=== PATIENT | male | born 1935 | race Caucasian/White ===

== ENCOUNTER → 2018-10-09 10:31 | Outpatient (CLI) | payer OTHER, SELFPAY ==
[2018-10-09 12:03] LABS: Add Manual Diff / Slide Review NO; Basophils Percent Auto 0.7 % (0-2); Eosinophils Percent Auto 2.6 % (2-4); Hematocrit 41.9 % (41-53); Hemoglobin 14.2 g/dL (13.5-17.5); Lymphocytes Percent Auto 38.3 % (25-40); Mean Corpuscular HGB Conc 33.8 % (30-36); Mean Corpuscular Volume 85.9 fL (80-100); Monocytes Percent Auto 5.9 % (3-14); Neutrophils Absolute Auto 5000 /uL (3000-5900); Neutrophils Percent Auto 52.5 % (50-75); Platelet Count 207 X10^3/uL (150-400); Red Blood Cell Count 4.87 X10^6/uL (4.5-5.9); Red Cell Distribution Width 14.5 % (11.6-14.8); White Blood Cell Count 9.6 X10^3/uL (4.5-11.0)
[2018-10-09 12:19] LABS: Alanine Aminotransferase 20 IU/L (21-72); Albumin 4.3 g/dL (3.5-5.0); Albumin Globulin Ratio 1.7 (1.0-2.8); Alkaline Phosphatase 53 U/L (38-126); Aspartate Aminotransferase 26 IU/L (17-59); Bilirubin Total 0.9 mg/dL (0.2-1.3); Blood Urea Nitrogen 15 mg/dL (9-20); Calcium 9.5 mg/dL (8.4-10.2); Carbon Dioxide 26 mmol/L (22-32); Chloride 106 mmol/L (98-107); Cholesterol 161 mg/dL (140-199); Estimated Glomerular Filt Rate > 60.0 mL/min (>60); Globulin 2.5 g/dL (1.7-4.1); Glucose 92 mg/dL (80-110); HDL Cholesterol 51 mg/dL (40-60); HEMOLYSIS 23 (0-50); LDL Cholesterol Calculated 94 mg/dL (<100); Potassium 4.8 mmol/L (3.4-5.1); Sodium 143 mmol/L (137-145); Total Protein 6.8 g/dL (6.3-8.2); Triglycerides 81 mg/dL (35-150)
== END ==
PROVIDERS: PCP Student in an Organized Health Care Education/Training Program; Visit Provider Student in an Organized Health Care Education/Training Program
DX: E78.00 Pure hypercholesterolemia, unspecified (principal)
CPT/HCPCS: 36415; 80053; 80061; 85025

== ENCOUNTER → 2019-08-14 08:28 | Outpatient (CLI) | payer OTHER, SELFPAY ==
[2019-08-14 09:47] LABS: Alanine Aminotransferase 17 IU/L (21-72); Albumin Globulin Ratio 1.8 (1.0-2.8); Alkaline Phosphatase 52 U/L (38-126); Aspartate Aminotransferase 27 IU/L (17-59); BUN Creatinine Ratio 16.7 (6-22); Bilirubin Total 1.1 mg/dL (0.2-1.3); Blood Urea Nitrogen 20 mg/dL (9-20); Calcium 9.6 mg/dL (8.4-10.2); Carbon Dioxide 30 mmol/L (22-32); Chloride 103 mmol/L (98-107); Cholesterol 152 mg/dL (140-199); Estimated Glomerular Filt Rate 57.7 mL/min (>60); Globulin 2.2 g/dL (1.7-4.1); Glucose 94 mg/dL (80-110); HDL Cholesterol 45 mg/dL (40-60); HEMOLYSIS < 15 (0-50); LDL Cholesterol Calculated 92 mg/dL (<100); Potassium 5.1 mmol/L (3.4-5.1); Sodium 138 mmol/L (137-145); Total Protein 6.2 g/dL (6.3-8.2); Triglycerides 77 mg/dL (35-150)
== END ==
PROVIDERS: PCP Student in an Organized Health Care Education/Training Program; Visit Provider Student in an Organized Health Care Education/Training Program
DX: E78.5 Hyperlipidemia, unspecified (principal); N40.1 Benign prostatic hyperplasia with lower urinary tract symptoms
CPT/HCPCS: 36415; 80053; 80061

== ENCOUNTER → 2020-03-31 09:20 | Outpatient (CLI) | payer OTHER, SELFPAY ==
[2020-03-31 10:35] LABS: Alanine Aminotransferase 15 IU/L (<50); Albumin 4.1 g/dL (3.5-5.0); Albumin Globulin Ratio 1.8 (1.0-2.8); Alkaline Phosphatase 58 U/L (38-126); Aspartate Aminotransferase 33 IU/L (17-59); BUN Creatinine Ratio 23.1 (6-22); Bilirubin Total 0.7 mg/dL (0.2-1.3); Blood Urea Nitrogen 24 mg/dL (9-20); Calcium 9.6 mg/dL (8.4-10.2); Carbon Dioxide 29 mmol/L (22-32); Chloride 105 mmol/L (98-107); Cholesterol 155 mg/dL (140-199); Estimated Glomerular Filt Rate > 60.0 mL/min (>60); Globulin 2.3 g/dL (1.7-4.1); Glucose 103 mg/dL (80-110); HDL Cholesterol 38 mg/dL (40-60); HEMOLYSIS < 15 (0-50); LDL Cholesterol Calculated 102 mg/dL (<100); Potassium 5.3 mmol/L (3.4-5.1); Sodium 140 mmol/L (137-145); Total Protein 6.4 g/dL (6.3-8.2); Triglycerides 77 mg/dL (35-150)
== END ==
PROVIDERS: PCP Student in an Organized Health Care Education/Training Program; Referring Provider Student in an Organized Health Care Education/Training Program; Visit Provider Student in an Organized Health Care Education/Training Program
DX: E78.5 Hyperlipidemia, unspecified (principal)
CPT/HCPCS: 36415; 80053; 80061

== ENCOUNTER → 2020-05-01 09:35 | Outpatient (CLI) | payer OTHER, SELFPAY ==
[2020-05-01 10:37] LABS: BUN Creatinine Ratio 23.6 (6-22); Blood Urea Nitrogen 26 mg/dL (9-20); Calcium 9.5 mg/dL (8.4-10.2); Carbon Dioxide 30 mmol/L (22-32); Chloride 105 mmol/L (98-107); Estimated Glomerular Filt Rate > 60.0 mL/min (>60); Glucose 92 mg/dL (80-110); HEMOLYSIS < 15 (0-50); Potassium 4.3 mmol/L (3.4-5.1); Sodium 138 mmol/L (137-145)
== END ==
PROVIDERS: PCP Student in an Organized Health Care Education/Training Program; Referring Provider Student in an Organized Health Care Education/Training Program; Visit Provider Student in an Organized Health Care Education/Training Program
DX: E87.5 Hyperkalemia (principal)
CPT/HCPCS: 36415; 80048

== ENCOUNTER → 2021-02-23 09:13 | Outpatient (CLI) | payer OTHER, SELFPAY ==
[2021-02-23 09:57] LABS: Bacteria Urine Few (2-10); Hyaline Casts Urine 1-5/LPF; RBC Urine 1-5/HPF (0-5/HPF); WBC Urine 1-5/HPF (0-5/HPF)
== END ==
PROVIDERS: PCP Student in an Organized Health Care Education/Training Program; Referring Provider Physician Assistant; Visit Provider Physician Assistant
DX: N40.1 Benign prostatic hyperplasia with lower urinary tract symptoms (principal)
CPT/HCPCS: 81015; 87086

== ENCOUNTER → 2021-04-08 12:19 | Outpatient (CLI) | payer OTHER, SELFPAY ==
[2021-04-08 14:00] LABS: Add Manual Diff / Slide Review YES; Hematocrit 34.1 % (41-53); Hemoglobin 11.2 g/dL (13.5-17.5); Mean Corpuscular HGB Conc 32.8 % (30-36); Mean Corpuscular Hemoglobin 28.9 PG (26-34); Platelet Count 147 X10^3/uL (150-400); Red Blood Cell Count 3.87 X10^6/uL (4.5-5.9); Red Cell Distribution Width 15.8 % (11.6-14.8); White Blood Cell Count 26.1 X10^3/uL (4.5-11.0)
[2021-04-08 14:23] LABS: Neutrophils Absolute Manual 3915 /uL (3000-5900); RBC Morphology Normal Morphology; Smudge Cells 2+; Total Cells Counted 100
[2021-04-08 15:06] LABS: Alanine Aminotransferase 14 IU/L (<50); Albumin 3.9 g/dL (3.5-5.0); Alkaline Phosphatase 67 U/L (38-126); Aspartate Aminotransferase 31 IU/L (17-59); BUN Creatinine Ratio 23.5 (6-22); Bilirubin Total 0.8 mg/dL (0.2-1.3); Blood Urea Nitrogen 28 mg/dL (9-20); Calcium 9.6 mg/dL (8.4-10.2); Carbon Dioxide 29 mmol/L (22-32); Chloride 106 mmol/L (98-107); Cholesterol 152 mg/dL (140-199); Glucose 89 mg/dL (80-110); HDL Cholesterol 43 mg/dL (40-60); HEMOLYSIS < 15 (0-50); LDL Cholesterol Calculated 94 mg/dL (<100); Potassium 4.6 mmol/L (3.4-5.1); Sodium 142 mmol/L (137-145); Total Protein 5.9 g/dL (6.3-8.2); Triglycerides 75 mg/dL (35-150)
== END ==
PROVIDERS: PCP Student in an Organized Health Care Education/Training Program; Referring Provider Student in an Organized Health Care Education/Training Program; Visit Provider Student in an Organized Health Care Education/Training Program
DX: Z00.00 Encounter for general adult medical examination without abnormal findings (principal); E78.00 Pure hypercholesterolemia, unspecified; N40.1 Benign prostatic hyperplasia with lower urinary tract symptoms
CPT/HCPCS: 36415; 80053; 80061; 85007; 85025

== ENCOUNTER → 2021-04-16 10:28 | Outpatient (CLI) | payer OTHER, SELFPAY ==
--- NOTE | 2021-04-16 | DI.US.S_ITS ---
PROCEDURE: US ABDOMEN LIMITED INDICATIONS: Retention of urine, unspecified TECHNIQUE: Real-time focused scanning was performed of the abdomen, with image documentation. COMPARISON: [facility], US, US RENAL COMPLETE, 04/16/2021, 9:44. FINDINGS: The liver demonstrates prominent size. The liver demonstrates generalized mildly increased echogenicity. This decreases ultrasound sensitivity for detection of hepatic masses. Gallstones are seen. The gallbladder wall is not thickened, measuring 3 mm or less. No specific pericholecystic fluid is seen. The sonographic Vivar sign is negative. There is no biliary dilatation, the common bile duct measures 3 mm. The pancreas is not well seen. At the expected location of the pancreas, there is a mantle of irregular soft tissue that measures 11.4 x 6.3 cm in greatest axial dimension. The spleen is enlarged, with a maximum length of 15.6 cm and a calculated volume of 1000 cubic cm. A trace of free fluid can be seen adjacent to the spleen. IMPRESSION: Abnormal region of the pancreas, with irregular mass is seen at this site. This may be related to an abnormal pancreas, yet it is more likely related to retroperitoneal lymphadenopathy. Please correlate with known patient history. Please consider a dedicated CT with at least IV contrast for further evaluation. Hepatosplenomegaly, with mild likely underlying fatty infiltration. Gallstones are seen, yet without additional sonographic signs of cholecystitis. Negative for biliary dilatation. Please correlate with physical examination findings, patient presentation, and laboratory values. Note: Dr. Salas was not available to discuss this case at the time of this dictation. Note: Findings and recommendations relayed to Dr. Salas via office staff, Nicole, at 11:17 a.m. [place] time on April 16, 2021. Dictated by: Junaid Torres M.D. on 04/16/2021 at 11:11 Approved by: Junaid Torres M.D. on 04/16/2021 at 11:18
--- NOTE | 2021-04-16 | DI.US.S_ITS ---
PROCEDURE: US RENAL COMPLETE INDICATIONS: Retention of urine, unspecified TECHNIQUE: Real-time scanning was performed of the kidneys and bladder, with image documentation. COMPARISON: None. FINDINGS: Kidneys: Kidneys are normal in size. Right kidney measures 11.2 cm long; left kidney measures 1.4 cm long. Right renal cortical thickness is 11.1 cm; left renal cortical thickness is 1.4 cm. Renal cortical echotexture is normal. No hydronephrosis or nephrolithiasis. No suspicious solid mass lesions. Extrarenal pelvis appearance. Bladder: Pre-void bladder volume is 581 mL. Post-void residual is 545 mL. Pre-void images demonstrate no intraluminal masses or stones. On pre-void images, left but not the right ureteral jets are noted with color Doppler interrogation. (Of note, ureteral jets may not be detectable in up to 25% of cases due to insufficient differences in specific gravity between ureteral and bladder urine). Note is made of debris within the bladder lumen Miscellaneous: No free pelvic fluid. IMPRESSION: No hydronephrosis or nephrolithiasis found. Bilateral extrarenal pelvis morphology. Note is made of a relatively large bladder volume with very little voiding, as noted above. Floating debris within the bladder lumen may indicate presence of urinary tract infection at this time. Dictated by: Taras Hart M.D. on 04/16/2021 at 15:35 Approved by: Taras Hart M.D. on 04/16/2021 at 15:37
== END ==
PROVIDERS: PCP Student in an Organized Health Care Education/Training Program; Referring Provider Urology; Visit Provider Urology
DX: R33.9 Retention of urine, unspecified (principal); K86.9 Disease of pancreas, unspecified; R16.2 Hepatomegaly with splenomegaly, not elsewhere classified; K80.20 Calculus of gallbladder without cholecystitis without obstruction
CPT/HCPCS: 76705; 76770

== ENCOUNTER → 2021-04-22 09:48 | Outpatient (CLI) | payer OTHER, SELFPAY ==
[2021-04-22 10:53] LABS: Mean Corpuscular HGB Conc 32.4 % (30-36); Mean Corpuscular Hemoglobin 28.5 PG (26-34); Mean Corpuscular Volume 87.9 fL (80-100); Platelet Count 161 X10^3/uL (150-400); Red Blood Cell Count 3.87 X10^6/uL (4.5-5.9); Red Cell Distribution Width 15.6 % (11.6-14.8); White Blood Cell Count 26.4 X10^3/uL (4.5-11.0)
[2021-04-22 11:32] LABS: Alanine Aminotransferase 15 IU/L (<50); Albumin 3.6 g/dL (3.5-5.0); Albumin Globulin Ratio 1.7 (1.0-2.8); Alkaline Phosphatase 61 U/L (38-126); Aspartate Aminotransferase 32 IU/L (17-59); BUN Creatinine Ratio 23.1 (6-22); Bilirubin Total 0.6 mg/dL (0.2-1.3); Blood Urea Nitrogen 25 mg/dL (9-20); Calcium 9.4 mg/dL (8.4-10.2); Carbon Dioxide 27 mmol/L (22-32); Chloride 106 mmol/L (98-107); Estimated Glomerular Filt Rate > 60.0 mL/min (>60); Globulin 2.1 g/dL (1.7-4.1); Glucose 96 mg/dL (80-110); HEMOLYSIS < 15 (0-50); Lipase 96 U/L (23-300); Potassium 4.7 mmol/L (3.4-5.1); Sodium 140 mmol/L (137-145); Total Protein 5.7 g/dL (6.3-8.2)
== END ==
PROVIDERS: PCP Student in an Organized Health Care Education/Training Program; Referring Provider Student in an Organized Health Care Education/Training Program; Visit Provider Student in an Organized Health Care Education/Training Program
DX: R10.11 Right upper quadrant pain (principal)
CPT/HCPCS: 36415; 80053; 83690; 85027

== ENCOUNTER 2021-10-04 14:30 | Outpatient (RCR) | payer OTHER, SELFPAY ==
--- NOTE | 2021-07-29 07:41 | PT.OIE ---
Addendum entered and electronically signed by Hayden Paul, PT 07/29/21 12:57: Evaluation 07/28/21 [id number]. Original Note: Current Diagnoses Sciatica, right side (07/28/21) Visit Care Team Role Provider Type Corinne Galarza PA-C Family Provider Non-Staff Primary Care Provider Specialty: Internal Medicine Address: [address] [place] [address], [id number] Email: [email or web address] Dent PA-C Attending Provider Advanced Youth Manager Referring Provider Specialty: Address: [facility], [facility], [place], [address] Email: [email or web address] Physical Therapy Initial Evaluation PT-OP-A Visit Information Start: 07/29/21 07:18 Freq: Status: Active Protocol: Document 07/28/21 09:40 OF (Rec: 07/29/21 07:41 OF [email or web address]) Out-Patient Physical Therapy Visit Information Visit Information Visit Type Initial Evaluation Visit Start Time 09:00 Visit Stop Time 09:40 Total Visit Minutes 40 Visit Number 1 Evaluation Information Evaluation Date 07/29/21 PT-OP-B Current Condition Start: 07/29/21 07:18 Freq: Status: Active Protocol: Document 07/28/21 09:40 OF (Rec: 07/29/21 07:41 OF [email or web address]) Current Condition History of Current Condition Onset Date 07/18/21 History of Current Condition Pt reports onset while moving sit to stand, no trauma. He has been seen at the walk in clinic. He reports transfers and prolonged walking is pain inducing. Sitting is pain free . 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 I at home PT-OP-C Subjective Start: 07/29/21 07:18 Freq: Status: Active Protocol: Document 07/28/21 09:40 OF (Rec: 07/29/21 07:41 OF [email or web address]) OP-PT Subjective Patient Comments Patient Comments walking is worse than anything Patient Reported Progress Same OP-PT Pain Assessment Pain Assessment Grid Paper Pain Assessment Grid Completed Yes Location R sided lumbar/glute Intensity 6 Scale Used Numeric (0 - 10) Description Aching,Pressure,Pulling Frequency Frequent Pain Aggravating Factors Changing Position,Activity, Exercise Pain Alleviating Factors Sitting PT-OP-G Mobility & Gait Start: 07/29/21 07:18 Freq: Status: Active Protocol: Document 07/28/21 09:40 OF (Rec: 07/29/21 07:41 OF [email or web address]) OP Gait Assessment Gait Gait Assistance Required: Minimum Assistance Distance (Feet) 100 Able to Maintain Weight Bearing Status Yes During Gait Assistive Devices Assistive Device Gait Belt Gait Deviations General Gait Pattern Decreased Stride Length, Lateral Trunk Lean Comments Gait Comments Shuffling, poor pushoff. Advised pt to bring straight cane to offload R LE Stair Climbing Evaluation Comments Stair Climbing Comments stairs deferred due to difficulty with level surfaces PT-OP-H Neuro Start: 07/29/21 07:18 Freq: Status: Active Protocol: Document 07/28/21 09:40 OF (Rec: 07/29/21 07:41 OF [email or web address]) Sensation Evaluation Gross Sensation Gross Sensation WNL PT-OP-K Range of Motion Start: 07/29/21 07:18 Freq: Status: Active Protocol: Document 07/28/21 09:40 OF (Rec: 07/29/21 07:41 OF [email or web address]) Hip Goniometric Range of Motion Hip ROM Limitations Comments Pt demonstrates normal hip AROM bilat PT-OP-M Strength Start: 07/29/21 07:18 Freq: Status: Active Protocol: Document 07/28/21 09:40 OF (Rec: 07/29/21 07:41 OF [email or web address]) Hip Strength Hip Manual Muscle Testing L Flexion (L2) 4 Good Extension (S1) 3 Fair Abduction 3+ Fair+ Adduction 3+ Fair+ External Rotation 3- Fair- Internal Rotation 3- Fair- R Flexion (L2) 4 Good Extension (S1) 3+ Fair+ Abduction 3+ Fair+ Adduction 3+ Fair+ External Rotation 3- Fair- Internal Rotation 3- Fair- PT-OP-Q Treatments Start: 07/29/21 07:18 Freq: Status: Active Protocol: Document 07/28/21 09:40 OF (Rec: 07/29/21 07:41 OF [email or web address]) Therapeutic Exercises Supine Exercises STM with ball Supine Exercise Name sup on ball for piriformis Side right Reps/Minutes 3x5min piriformis stretch Side bilateral Reps/Minutes [id number] Comments extensive cues for proper positioning Gait Training Gait Activity straight cane Comments Therapist demo for straight cane AMB, pt declines today, agreeable to bring his own cane to next visit PT-OP-T Assessment and Plan Start: 07/29/21 07:18 Freq: Status: Active Protocol: Document 07/28/21 09:40 OF (Rec: 07/29/21 07:41 OF [email or web address]) Physical Therapy Assessment Rehab Potential Rehabilitation Potential Good Evaluation Complexity Number of Personal Factors/Comorbidities 1-2 Number of Body Systems Impaired 1-2 Clinical Presentation at Evaluation Stable Impairments Impairments Activity Tolerance,Balance, Functional Activities,Gait, Pain,ROM,Soft Tissue Mobility, Strength Goals 4 Impairment high fall risk Short Term Goal (STG) pt will complete TUG (unable to without assist upon evaluation) STG Duration 2 weeks Warehouse Order Selector Goal (LTG) Pt will complete TUG <12sec to demo low fall risk within community. LTG Duration 6 weeks 3 Impairment pain with transfers and AMB Short Term Goal (STG) Pt will perform sit to stand with pain <2/10 STG Duration 2 weeks Alf Goal (LTG) Pt will perform sit to stand and AMB >250ft with pain <2/10 2 Impairment LE weakness Short Term Goal (STG) Pt will demonstrate bilat LE strength 3+/5 grossly STG Duration 2 weeks Warehouse Order Selector Goal (LTG) Pt will improve LE strength to complete >8 sit to stands in 30sec LTG Duration 6 weeks 1 Impairment pt lacks HEP Short Term Goal (STG) Pt will be I with HEP to maximize functional return STG Duration 2 weeks Assessment Summary Assessment Skip is a pleasant 85 y male referred for back pain. He indicates pain primarily in glutes on R, lumbar on R. Pain is worse with sit to stands, stairs and AMB. He demonstrates normal hip ROM bilat. He has no radicular symptoms. Reports repeated spinal flexion is more comfortable than extension. He has relief with piriformis stretching and STM using tennis ball while supine. He has poor gait kinematics with ext rot R LE, R sided lateral lean and poor pushoff. he would benefit from cane to offload R LE, he is bringing one to next visit. He is a high fall risk due to his inability to complete TUG without assist. He will require skilled therapy to reduce fall risk, improve LE strength, manage pain with mobility, and return to I within the community. Physical Therapy Plan Frequency and Duration Frequency of Treatment 1-2x/week Duration of Treatment 6 weeks Plan of Care Start Date 07/29/21 Plan of Care End Date 09/09/21 Therapeutic Interventions Therapeutic Interventions Balance Training,Gait Training ,Home Exercise Program,Manual Therapy,Neuromuscular Re- education,Therapeutic Activities,Therapeutic Exercises Next Visit Focus/Plan Next Note Type Treatment Note Next Visit Plan re assess HEP for piriformis stretching/STM. Add core stability, LE strengthening. Gait training with cane to offload R LE
--- NOTE | 2021-07-29 11:09 | PT.OTN ---
Current Diagnoses Sciatica, right side (07/29/21) Physical Therapy Treatment Note PT-OP-A Visit Information Start: 07/29/21 07:18 Freq: Status: Active Protocol: Document 07/29/21 09:41 OF (Rec: 07/29/21 11:09 OF [email or web address]) Out-Patient Physical Therapy Visit Information Visit Information Visit Type Treatment Note Visit Start Time 09:10 Visit Stop Time 09:41 Total Visit Minutes 31 Visit Number 2 Evaluation Information Evaluation Date 07/29/21 PT-OP-B Current Condition Start: 07/29/21 07:18 Freq: Status: Active Protocol: Document 07/28/21 09:40 OF (Rec: 07/29/21 07:41 OF [email or web address]) Current Condition History of Current Condition Onset Date 07/18/21 History of Current Condition Pt reports onset while moving sit to stand, no trauma. He has been seen at the walk in clinic. He reports transfers and prolonged walking is pain inducing. Sitting is pain free . 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 I at home PT-OP-C Subjective Start: 07/29/21 07:18 Freq: Status: Active Protocol: Document 07/29/21 09:41 OF (Rec: 07/29/21 11:09 OF [email or web address]) OP-PT Subjective Patient Comments Patient Comments pt with cane, states pain is worse today than yesterday Patient Reported Progress Improving OP-PT Pain Assessment Pain Assessment Grid Paper Pain Assessment Grid Completed No Location R sided lumbar/glute Intensity 7 Scale Used Numeric (0 - 10) Description Aching Frequency Frequent Pain Aggravating Factors Changing Position,Exercise Pain Alleviating Factors Lying Supine,Sitting PT-OP-G Mobility & Gait Start: 07/29/21 07:18 Freq: Status: Active Protocol: Document 07/28/21 09:40 OF (Rec: 07/29/21 07:41 OF [email or web address]) OP Gait Assessment Gait Gait Assistance Required: Minimum Assistance Distance (Feet) 100 Able to Maintain Weight Bearing Status Yes During Gait Assistive Devices Assistive Device Gait Belt Gait Deviations General Gait Pattern Decreased Stride Length, Lateral Trunk Lean Comments Gait Comments Shuffling, poor pushoff. Advised pt to bring straight cane to offload R LE Stair Climbing Evaluation Comments Stair Climbing Comments stairs deferred due to difficulty with level surfaces PT-OP-H Neuro Start: 07/29/21 07:18 Freq: Status: Active Protocol: Document 07/28/21 09:40 OF (Rec: 07/29/21 07:41 OF [email or web address]) Sensation Evaluation Gross Sensation Gross Sensation WNL PT-OP-K Range of Motion Start: 07/29/21 07:18 Freq: Status: Active Protocol: Document 07/28/21 09:40 OF (Rec: 07/29/21 07:41 OF [email or web address]) Hip Goniometric Range of Motion Hip ROM Limitations Comments Pt demonstrates normal hip AROM bilat PT-OP-M Strength Start: 07/29/21 07:18 Freq: Status: Active Protocol: Document 07/28/21 09:40 OF (Rec: 07/29/21 07:41 OF [email or web address]) Hip Strength Hip Manual Muscle Testing L Flexion (L2) 4 Good Extension (S1) 3 Fair Abduction 3+ Fair+ Adduction 3+ Fair+ External Rotation 3- Fair- Internal Rotation 3- Fair- R Flexion (L2) 4 Good Extension (S1) 3+ Fair+ Abduction 3+ Fair+ Adduction 3+ Fair+ External Rotation 3- Fair- Internal Rotation 3- Fair- PT-OP-Q Treatments Start: 07/29/21 07:18 Freq: Status: Active Protocol: Document 07/29/21 09:41 OF (Rec: 07/29/21 11:09 OF [email or web address]) Therapeutic Exercises Supine Exercises pelvic tilt Side bilateral Reps/Minutes 3x5 Comments cues for core recruitment, holding, breathing STM with ball Comments hold due to pain piriformis stretch Side bilateral Reps/Minutes [id number] Comments extensive cues for proper positioning Gait Training Gait Activity straight cane Device Used cane Level of Assistance MIn Surface level Distance/Duration 50ft x4 Treatment Focus safe AD placement, AD fitting, pushoff, using cane in unaffected UE PT-OP-T Assessment and Plan Start: 07/29/21 07:18 Freq: Status: Active Protocol: Document 07/29/21 09:41 OF (Rec: 07/29/21 11:09 OF [email or web address]) Physical Therapy Assessment Rehab Potential Rehabilitation Potential Excellent Evaluation Complexity Number of Personal Factors/Comorbidities 1-2 Number of Body Systems Impaired 1-2 Clinical Presentation at Evaluation Stable Impairments Impairments Activity Tolerance,Balance, Functional Activities,Gait, Pain,ROM,Soft Tissue Mobility, Strength Goals 4 Impairment high fall risk Short Term Goal (STG) pt will complete TUG (unable to without assist upon evaluation) STG Duration 2 weeks Residential Goal (LTG) Pt will complete TUG <12sec to demo low fall risk within community. LTG Duration 6 weeks 3 Impairment pain with transfers and AMB Short Term Goal (STG) Pt will perform sit to stand with pain <2/10 STG Duration 2 weeks Residential Goal (LTG) Pt will perform sit to stand and AMB >250ft with pain <2/10 2 Impairment LE weakness Short Term Goal (STG) Pt will demonstrate bilat LE strength 3+/5 grossly STG Duration 2 weeks Interpretive Program Coordinator Goal (LTG) Pt will improve LE strength to complete >8 sit to stands in 30sec LTG Duration 6 weeks 1 Impairment pt lacks HEP Short Term Goal (STG) Pt will be I with HEP to maximize functional return STG Duration 2 weeks Progress Towards Goals Progress Towards Goals Progressing Toward Goals Assessment Summary Assessment Ranjan reports minimal pain after tx today. He requires cues for proper set up of stretching for piriformis. Gait training with cane improves symptoms with AMB Physical Therapy Plan Frequency and Duration Frequency of Treatment 1-2x/week Duration of Treatment 6 weeks Plan of Care Start Date 07/29/21 Plan of Care End Date 09/09/21 Therapeutic Interventions Therapeutic Interventions Balance Training,Gait Training ,Home Exercise Program,Manual Therapy,Neuromuscular Re- education,Therapeutic Activities,Therapeutic Exercises Next Visit Focus/Plan Next Note Type Treatment Note Next Visit Plan Progress hip strengthening, educate on piriformis stretching, STM, re addressgait training
--- NOTE | 2021-08-03 11:15 | PT.OTN ---
Current Diagnoses Sciatica, right side (08/03/21) Physical Therapy Treatment Note PT-OP-A Visit Information Start: 07/29/21 07:18 Freq: Status: Active Protocol: Document 08/03/21 11:11 OF (Rec: 08/03/21 11:15 OF [email or web address]) Out-Patient Physical Therapy Visit Information Visit Information Visit Type Treatment Note Visit Start Time 10:30 Visit Stop Time 11:00 Total Visit Minutes 41 Visit Number 3 Evaluation Information Evaluation Date 07/29/21 PT-OP-B Current Condition Start: 07/29/21 07:18 Freq: Status: Active Protocol: Document 07/28/21 09:40 OF (Rec: 07/29/21 07:41 OF [email or web address]) Current Condition History of Current Condition Onset Date 07/18/21 History of Current Condition Pt reports onset while moving sit to stand, no trauma. He has been seen at the walk in clinic. He reports transfers and prolonged walking is pain inducing. Sitting is pain free . 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 I at home PT-OP-C Subjective Start: 07/29/21 07:18 Freq: Status: Active Protocol: Document 08/03/21 11:11 OF (Rec: 08/03/21 11:15 OF [email or web address]) OP-PT Subjective Patient Comments Patient Comments I am getting better, much less pain the past 2 days Patient Reported Progress Improving OP-PT Pain Assessment Location R sided lumbar/glute Intensity 5 Scale Used Numeric (0 - 10) Description Aching Frequency Frequent Pain Aggravating Factors Changing Position,Exercise Pain Alleviating Factors Lying Supine,Sitting PT-OP-G Mobility & Gait Start: 07/29/21 07:18 Freq: Status: Active Protocol: Document 07/28/21 09:40 OF (Rec: 07/29/21 07:41 OF [email or web address]) OP Gait Assessment Gait Gait Assistance Required: Minimum Assistance Distance (Feet) 100 Able to Maintain Weight Bearing Status Yes During Gait Assistive Devices Assistive Device Gait Belt Gait Deviations General Gait Pattern Decreased Stride Length, Lateral Trunk Lean Comments Gait Comments Shuffling, poor pushoff. Advised pt to bring straight cane to offload R LE Stair Climbing Evaluation Comments Stair Climbing Comments stairs deferred due to difficulty with level surfaces PT-OP-H Neuro Start: 07/29/21 07:18 Freq: Status: Active Protocol: Document 07/28/21 09:40 OF (Rec: 07/29/21 07:41 OF [email or web address]) Sensation Evaluation Gross Sensation Gross Sensation WNL PT-OP-K Range of Motion Start: 07/29/21 07:18 Freq: Status: Active Protocol: Document 07/28/21 09:40 OF (Rec: 07/29/21 07:41 OF [email or web address]) Hip Goniometric Range of Motion Hip ROM Limitations Comments Pt demonstrates normal hip AROM bilat PT-OP-M Strength Start: 07/29/21 07:18 Freq: Status: Active Protocol: Document 07/28/21 09:40 OF (Rec: 07/29/21 07:41 OF [email or web address]) Hip Strength Hip Manual Muscle Testing L Flexion (L2) 4 Good Extension (S1) 3 Fair Abduction 3+ Fair+ Adduction 3+ Fair+ External Rotation 3- Fair- Internal Rotation 3- Fair- R Flexion (L2) 4 Good Extension (S1) 3+ Fair+ Abduction 3+ Fair+ Adduction 3+ Fair+ External Rotation 3- Fair- Internal Rotation 3- Fair- PT-OP-Q Treatments Start: 07/29/21 07:18 Freq: Status: Active Protocol: Document 08/03/21 11:11 OF (Rec: 08/03/21 11:15 OF [email or web address]) Therapeutic Exercises Supine Exercises bridges Side bilateral Reps/Minutes 1x10, 1 sec hold pelvic tilt Side bilateral Reps/Minutes 3x5 Comments cues for core recruitment, holding, breathing piriformis stretch Side bilateral Reps/Minutes [id number] Comments extensive cues for proper positioning Gait Training Gait Activity stairs Level of Assistance SBA Distance/Duration [id number] Treatment Focus step to gait, rails on L as at home straight cane Device Used cane Level of Assistance MIn Surface level Distance/Duration 50ft x4 Treatment Focus cues for step thru with L LE, cues for safety with cane width for proper PETRA PT-OP-T Assessment and Plan Start: 07/29/21 07:18 Freq: Status: Active Protocol: Document 08/03/21 11:11 OF (Rec: 08/03/21 11:15 OF [email or web address]) Physical Therapy Assessment Rehab Potential Rehabilitation Potential Good Evaluation Complexity Number of Personal Factors/Comorbidities 1-2 Number of Body Systems Impaired 1-2 Clinical Presentation at Evaluation Stable Impairments Impairments Activity Tolerance,Balance, Functional Activities,Gait, Pain,ROM,Soft Tissue Mobility, Strength Goals 4 Impairment high fall risk Short Term Goal (STG) pt will complete TUG (unable to without assist upon evaluation) STG Duration 2 weeks Air Drier Machine Operator Goal (LTG) Pt will complete TUG <12sec to demo low fall risk within community. LTG Duration 6 weeks 3 Impairment pain with transfers and AMB Short Term Goal (STG) Pt will perform sit to stand with pain <2/10 STG Duration 2 weeks Assisted Goal (LTG) Pt will perform sit to stand and AMB >250ft with pain <2/10 2 Impairment LE weakness Short Term Goal (STG) Pt will demonstrate bilat LE strength 3+/5 grossly STG Duration 2 weeks Assisted Goal (LTG) Pt will improve LE strength to complete >8 sit to stands in 30sec LTG Duration 6 weeks 1 Impairment pt lacks HEP Short Term Goal (STG) Pt will be I with HEP to maximize functional return STG Duration 2 weeks Progress Towards Goals Progress Towards Goals Progressing Toward Goals Assessment Summary Assessment Ranjan states he is doing better, he has performed HEP as instructed. Requires MIN A for proper piriformis stretch. He does not like STM with tennis and has DC. He reports improved symptoms and mobility . Physical Therapy Plan Frequency and Duration Frequency of Treatment 1-2x/week Duration of Treatment 6 weeks Plan of Care Start Date 07/29/21 Plan of Care End Date 09/09/21 Therapeutic Interventions Therapeutic Interventions Balance Training,Gait Training ,Home Exercise Program,Manual Therapy,Neuromuscular Re- education,Therapeutic Activities,Therapeutic Exercises Next Visit Focus/Plan Next Note Type Treatment Note Next Visit Plan progress glute/hip strengthening
--- NOTE | 2021-08-05 14:35 | PT.OTN ---
Current Diagnoses Sciatica, right side (08/05/21) Physical Therapy Treatment Note PT-OP-A Visit Information Start: 07/29/21 07:18 Freq: Status: Active Protocol: Document 08/05/21 13:48 HH (Rec: 08/05/21 14:35 [id number]) Out-Patient Physical Therapy Visit Information Visit Information Visit Type Treatment Note Visit Start Time 13:48 Visit Stop Time 14:30 Total Visit Minutes 42 Visit Number 4 PT-OP-B Current Condition Start: 07/29/21 07:18 Freq: Status: Active Protocol: Document 07/28/21 09:40 OF (Rec: 07/29/21 07:41 OF [email or web address]) Current Condition History of Current Condition Onset Date 07/18/21 History of Current Condition Pt reports onset while moving sit to stand, no trauma. He has been seen at the walk in clinic. He reports transfers and prolonged walking is pain inducing. Sitting is pain free . 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 I at home PT-OP-C Subjective Start: 07/29/21 07:18 Freq: Status: Active Protocol: Document 08/05/21 13:48 HH (Rec: 08/05/21 14:35 [id number]) OP-PT Subjective Patient Comments Patient Comments I still have a lot of pain in the morning. I needed to take a couple tylenol for that but i am able to walk around the house without the cane. I have to use the care outside of the house Patient Reported Progress Improving PT-OP-G Mobility & Gait Start: 07/29/21 07:18 Freq: Status: Active Protocol: Document 07/28/21 09:40 OF (Rec: 07/29/21 07:41 OF [email or web address]) OP Gait Assessment Gait Gait Assistance Required: Minimum Assistance Distance (Feet) 100 Able to Maintain Weight Bearing Status Yes During Gait Assistive Devices Assistive Device Gait Belt Gait Deviations General Gait Pattern Decreased Stride Length, Lateral Trunk Lean Comments Gait Comments Shuffling, poor pushoff. Advised pt to bring straight cane to offload R LE Stair Climbing Evaluation Comments Stair Climbing Comments stairs deferred due to difficulty with level surfaces PT-OP-H Neuro Start: 07/29/21 07:18 Freq: Status: Active Protocol: Document 07/28/21 09:40 OF (Rec: 07/29/21 07:41 OF [email or web address]) Sensation Evaluation Gross Sensation Gross Sensation WNL PT-OP-K Range of Motion Start: 07/29/21 07:18 Freq: Status: Active Protocol: Document 07/28/21 09:40 OF (Rec: 07/29/21 07:41 OF [email or web address]) Hip Goniometric Range of Motion Hip ROM Limitations Comments Pt demonstrates normal hip AROM bilat PT-OP-M Strength Start: 07/29/21 07:18 Freq: Status: Active Protocol: Document 07/28/21 09:40 OF (Rec: 07/29/21 07:41 OF [email or web address]) Hip Strength Hip Manual Muscle Testing L Flexion (L2) 4 Good Extension (S1) 3 Fair Abduction 3+ Fair+ Adduction 3+ Fair+ External Rotation 3- Fair- Internal Rotation 3- Fair- R Flexion (L2) 4 Good Extension (S1) 3+ Fair+ Abduction 3+ Fair+ Adduction 3+ Fair+ External Rotation 3- Fair- Internal Rotation 3- Fair- PT-OP-Q Treatments Start: 07/29/21 07:18 Freq: Status: Active Protocol: Document 08/05/21 13:48 HH (Rec: 08/05/21 14:35 HH [id number]) Cardio Equipment Recumbent Stepper (Sci-Fit) Duration (Minutes) 5 Resistance 2 Seat Position 17 Therapeutic Exercises Supine Exercises supine ER Side right Equipment Used yellow band Reps/Minutes 8 x2 Comments for HEP bridges Side bilateral Reps/Minutes 1x10, 1 sec hold pelvic tilt Side bilateral Reps/Minutes 3x5 Comments cues for core recruitment, holding, breathing piriformis stretch Side bilateral Reps/Minutes [id number] Comments extensive cues for proper positioning Manual Therapy Treatment Soft Tissue Mobilization R glute Mobilization Type Myofascial Release,Sustained Pressure,Trigger Point Release Intensity/Depth Moderate Body Position Sidelying Comments + R QL, significant tenderness noted Manual Traction R hip Body Position Supine Reps/Duration 10 sec hold x10 Comments slight neural tension noted at R low back and hip. PT-OP-T Assessment and Plan Start: 07/29/21 07:18 Freq: Status: Active Protocol: Document 08/05/21 13:48 (Rec: 08/05/21 14:35 [id number]) Physical Therapy Assessment Goals 4 Impairment high fall risk Short Term Goal (STG) pt will complete TUG (unable to without assist upon evaluation) STG Duration 2 weeks Residential Goal (LTG) Pt will complete TUG <12sec to demo low fall risk within community. LTG Duration 6 weeks 3 Impairment pain with transfers and AMB Short Term Goal (STG) Pt will perform sit to stand with pain <2/10 STG Duration 2 weeks Filler Spreader Goal (LTG) Pt will perform sit to stand and AMB >250ft with pain <2/10 2 Impairment LE weakness Short Term Goal (STG) Pt will demonstrate bilat LE strength 3+/5 grossly STG Duration 2 weeks Filler Spreader Goal (LTG) Pt will improve LE strength to complete >8 sit to stands in 30sec LTG Duration 6 weeks 1 Impairment pt lacks HEP Short Term Goal (STG) Pt will be I with HEP to maximize functional return STG Duration 2 weeks Assessment Summary Assessment Ranjan stated he can walk at home without SPC but still very stiff in the morning. Added supine clamshell to improve his hip stabilizer strength. He radha session well. Pt will still need skilled therapy 2x/wk x 4 wks Physical Therapy Plan Frequency and Duration Frequency of Treatment 1-2x/week Duration of Treatment 6 weeks Plan of Care Start Date 07/29/21 Plan of Care End Date 09/09/21 Therapeutic Interventions Therapeutic Interventions Balance Training,Gait Training ,Home Exercise Program,Manual Therapy,Neuromuscular Re- education,Therapeutic Activities,Therapeutic Exercises Next Visit Focus/Plan Next Note Type Treatment Note Next Visit Plan progress glute/hip strengthening
--- NOTE | 2021-08-10 14:58 | PT.OTN ---
Current Diagnoses Sciatica, right side (08/10/21) Physical Therapy Treatment Note PT-OP-A Visit Information Start: 07/29/21 07:18 Freq: Status: Active Protocol: Document 08/10/21 13:52 HH (Rec: 08/10/21 14:58 [id number]) Out-Patient Physical Therapy Visit Information Visit Information Visit Type Treatment Note Visit Start Time 13:48 Visit Stop Time 14:30 Total Visit Minutes 42 Visit Number 5 PT-OP-B Current Condition Start: 07/29/21 07:18 Freq: Status: Active Protocol: Document 07/28/21 09:40 OF (Rec: 07/29/21 07:41 OF [email or web address]) Current Condition History of Current Condition Onset Date 07/18/21 History of Current Condition Pt reports onset while moving sit to stand, no trauma. He has been seen at the walk in clinic. He reports transfers and prolonged walking is pain inducing. Sitting is pain free . 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 I at home PT-OP-C Subjective Start: 07/29/21 07:18 Freq: Status: Active Protocol: Document 08/10/21 13:52 HH (Rec: 08/10/21 14:58 [id number]) OP-PT Subjective Patient Comments Patient Comments I felt quite sore from last session but then i felt good a day later. The stiffness in the morning is very hard on me and the first step is very weak and painful PT-OP-G Mobility & Gait Start: 07/29/21 07:18 Freq: Status: Active Protocol: Document 07/28/21 09:40 OF (Rec: 07/29/21 07:41 OF [email or web address]) OP Gait Assessment Gait Gait Assistance Required: Minimum Assistance Distance (Feet) 100 Able to Maintain Weight Bearing Status Yes During Gait Assistive Devices Assistive Device Gait Belt Gait Deviations General Gait Pattern Decreased Stride Length, Lateral Trunk Lean Comments Gait Comments Shuffling, poor pushoff. Advised pt to bring straight cane to offload R LE Stair Climbing Evaluation Comments Stair Climbing Comments stairs deferred due to difficulty with level surfaces PT-OP-H Neuro Start: 07/29/21 07:18 Freq: Status: Active Protocol: Document 07/28/21 09:40 OF (Rec: 07/29/21 07:41 OF [email or web address]) Sensation Evaluation Gross Sensation Gross Sensation WNL PT-OP-K Range of Motion Start: 07/29/21 07:18 Freq: Status: Active Protocol: Document 07/28/21 09:40 OF (Rec: 07/29/21 07:41 OF [email or web address]) Hip Goniometric Range of Motion Hip ROM Limitations Comments Pt demonstrates normal hip AROM bilat PT-OP-M Strength Start: 07/29/21 07:18 Freq: Status: Active Protocol: Document 07/28/21 09:40 OF (Rec: 07/29/21 07:41 OF [email or web address]) Hip Strength Hip Manual Muscle Testing L Flexion (L2) 4 Good Extension (S1) 3 Fair Abduction 3+ Fair+ Adduction 3+ Fair+ External Rotation 3- Fair- Internal Rotation 3- Fair- R Flexion (L2) 4 Good Extension (S1) 3+ Fair+ Abduction 3+ Fair+ Adduction 3+ Fair+ External Rotation 3- Fair- Internal Rotation 3- Fair- PT-OP-Q Treatments Start: 07/29/21 07:18 Freq: Status: Active Protocol: Document 08/10/21 13:52 HH (Rec: 08/10/21 14:58 HH [id number]) Therapeutic Exercises Supine Exercises LTR Side bilateral Reps/Minutes 5 x1 Comments for HEP knee to chest Supine Exercise Name unilateral Reps/Minutes 15s hold x 5 Comments for HEP, reports of nerve pulling at R low back supine ER Supine Exercise Name bilateral, review Equipment Used yellow band Reps/Minutes 8 x2 Comments for HEP piriformis stretch Side bilateral Reps/Minutes [id number] Comments extensive cues for proper positioning Therapeutic Activity Therapeutic Activity log roll Comments printed log roll handout. Will review with him next visit. Manual Therapy Treatment Soft Tissue Mobilization R glute Mobilization Type Myofascial Release,Sustained Pressure,Trigger Point Release Intensity/Depth Moderate Body Position Sidelying Comments reduced tenderness noted PT-OP-T Assessment and Plan Start: 07/29/21 07:18 Freq: Status: Active Protocol: Document 08/10/21 13:52 HH (Rec: 08/10/21 14:58 HH [id number]) Physical Therapy Assessment Goals 4 Impairment high fall risk Short Term Goal (STG) pt will complete TUG (unable to without assist upon evaluation) STG Duration 2 weeks Jail Goal (LTG) Pt will complete TUG <12sec to demo low fall risk within community. LTG Duration 6 weeks 3 Impairment pain with transfers and AMB Short Term Goal (STG) Pt will perform sit to stand with pain <2/10 STG Duration 2 weeks Document Control Coordinator Goal (LTG) Pt will perform sit to stand and AMB >250ft with pain <2/10 2 Impairment LE weakness Short Term Goal (STG) Pt will demonstrate bilat LE strength 3+/5 grossly STG Duration 2 weeks Document Control Coordinator Goal (LTG) Pt will improve LE strength to complete >8 sit to stands in 30sec LTG Duration 6 weeks 1 Impairment pt lacks HEP Short Term Goal (STG) Pt will be I with HEP to maximize functional return STG Duration 2 weeks Assessment Summary Assessment pt reports his major limitation is stiffness in the morning. Consolidated his HEP to flexion based lumbar and hip stretches today. Also educated and printed him the handout of using log roll for bed mobility to reduce his pain. Will review with him next visit and also work on stairs. Physical Therapy Plan Frequency and Duration Frequency of Treatment 1-2x/week Duration of Treatment 6 weeks Plan of Care Start Date 07/29/21 Plan of Care End Date 09/09/21 Therapeutic Interventions Therapeutic Interventions Balance Training,Gait Training ,Home Exercise Program,Manual Therapy,Neuromuscular Re- education,Therapeutic Activities,Therapeutic Exercises Next Visit Focus/Plan Next Note Type Treatment Note Next Visit Plan progress glute/hip strengthening
--- NOTE | 2021-08-19 16:24 | PT.OTN ---
Current Diagnoses Sciatica, right side (08/19/21) Physical Therapy Treatment Note PT-OP-A Visit Information Start: 07/29/21 07:18 Freq: Status: Active Protocol: Document 08/19/21 14:27 (Rec: 08/19/21 16:24 [id number]) Out-Patient Physical Therapy Visit Information Visit Information Visit Type Treatment Note Visit Start Time 14:30 Visit Stop Time 15:15 Total Visit Minutes 45 Visit Number 6 PT-OP-B Current Condition Start: 07/29/21 07:18 Freq: Status: Active Protocol: Document 07/28/21 09:40 OF (Rec: 07/29/21 07:41 OF [email or web address]) Current Condition History of Current Condition Onset Date 07/18/21 History of Current Condition Pt reports onset while moving sit to stand, no trauma. He has been seen at the walk in clinic. He reports transfers and prolonged walking is pain inducing. Sitting is pain free . 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 I at home PT-OP-C Subjective Start: 07/29/21 07:18 Freq: Status: Active Protocol: Document 08/19/21 14:27 (Rec: 08/19/21 16:24 [id number]) OP-PT Subjective Patient Comments Patient Comments Im feeling better but i still have to take tylenol in the morning and aleve in the pm. The log roll has been very very helpful so far Patient Reported Progress Improving PT-OP-G Mobility & Gait Start: 07/29/21 07:18 Freq: Status: Active Protocol: Document 07/28/21 09:40 OF (Rec: 07/29/21 07:41 OF [email or web address]) OP Gait Assessment Gait Gait Assistance Required: Minimum Assistance Distance (Feet) 100 Able to Maintain Weight Bearing Status Yes During Gait Assistive Devices Assistive Device Gait Belt Gait Deviations General Gait Pattern Decreased Stride Length, Lateral Trunk Lean Comments Gait Comments Shuffling, poor pushoff. Advised pt to bring straight cane to offload R LE Stair Climbing Evaluation Comments Stair Climbing Comments stairs deferred due to difficulty with level surfaces PT-OP-H Neuro Start: 07/29/21 07:18 Freq: Status: Active Protocol: Document 07/28/21 09:40 OF (Rec: 07/29/21 07:41 OF [email or web address]) Sensation Evaluation Gross Sensation Gross Sensation WNL PT-OP-K Range of Motion Start: 07/29/21 07:18 Freq: Status: Active Protocol: Document 07/28/21 09:40 OF (Rec: 07/29/21 07:41 OF [email or web address]) Hip Goniometric Range of Motion Hip ROM Limitations Comments Pt demonstrates normal hip AROM bilat PT-OP-M Strength Start: 07/29/21 07:18 Freq: Status: Active Protocol: Document 07/28/21 09:40 OF (Rec: 07/29/21 07:41 OF [email or web address]) Hip Strength Hip Manual Muscle Testing L Flexion (L2) 4 Good Extension (S1) 3 Fair Abduction 3+ Fair+ Adduction 3+ Fair+ External Rotation 3- Fair- Internal Rotation 3- Fair- R Flexion (L2) 4 Good Extension (S1) 3+ Fair+ Abduction 3+ Fair+ Adduction 3+ Fair+ External Rotation 3- Fair- Internal Rotation 3- Fair- PT-OP-Q Treatments Start: 07/29/21 07:18 Freq: Status: Active Protocol: Document 08/19/21 14:27 HH (Rec: 08/19/21 16:24 HH [id number]) Therapeutic Exercises Supine Exercises sciatic nerve glide Supine Exercise Name with knee extension Comments for HEP knee to chest Supine Exercise Name unilateral Reps/Minutes 15s hold x 5 Comments for HEP, reports of nerve pulling at R low back bridges Supine Exercise Name review Side bilateral Reps/Minutes 2 sec hold x8 Comments added to HEP pelvic tilt Side bilateral Reps/Minutes 3x5 Comments cues for core recruitment, holding, breathing Manual Therapy Treatment Soft Tissue Mobilization R glute Mobilization Type Myofascial Release,Sustained Pressure,Trigger Point Release Intensity/Depth Moderate Body Position Sidelying Comments reduced tenderness noted Manual Traction R hip Body Position Supine Reps/Duration 10 sec hold x10 Comments slight neural tension noted at R low back and hip. PT-OP-T Assessment and Plan Start: 07/29/21 07:18 Freq: Status: Active Protocol: Document 08/19/21 14:27 HH (Rec: 08/19/21 16:24 [id number]) Physical Therapy Assessment Goals 4 Impairment high fall risk Short Term Goal (STG) pt will complete TUG (unable to without assist upon evaluation) STG Duration 2 weeks Informatics Physician Liaison Goal (LTG) Pt will complete TUG <12sec to demo low fall risk within community. LTG Duration 6 weeks 3 Impairment pain with transfers and AMB Short Term Goal (STG) Pt will perform sit to stand with pain <2/10 STG Duration 2 weeks Detention Goal (LTG) Pt will perform sit to stand and AMB >250ft with pain <2/10 2 Impairment LE weakness Short Term Goal (STG) Pt will demonstrate bilat LE strength 3+/5 grossly STG Duration 2 weeks Detention Goal (LTG) Pt will improve LE strength to complete >8 sit to stands in 30sec LTG Duration 6 weeks 1 Impairment pt lacks HEP Short Term Goal (STG) Pt will be I with HEP to maximize functional return STG Duration 2 weeks Assessment Summary Assessment pt's glute and QL show reduced sensitivity to pressure. But his overall strength is very poor but its appropriate to initiate core and hip strengthening at this point. Added bridging and sciatic nerve glide. Physical Therapy Plan Frequency and Duration Frequency of Treatment 1-2x/week Duration of Treatment 6 weeks Plan of Care Start Date 07/29/21 Plan of Care End Date 09/09/21 Therapeutic Interventions Therapeutic Interventions Balance Training,Gait Training ,Home Exercise Program,Manual Therapy,Neuromuscular Re- education,Therapeutic Activities,Therapeutic Exercises Next Visit Focus/Plan Next Note Type Treatment Note Next Visit Plan progress glute/hip strengthening
--- NOTE | 2021-08-31 16:17 | PT.OTN ---
Current Diagnoses Sciatica, right side (08/31/21) Physical Therapy Treatment Note PT-OP-A Visit Information Start: 07/29/21 07:18 Freq: Status: Active Protocol: Document 08/31/21 14:01 (Rec: 08/31/21 16:16 [id number]) Out-Patient Physical Therapy Visit Information Visit Information Visit Type Progress Note Visit Start Time 14:31 Visit Stop Time 15:15 Total Visit Minutes 44 Visit Number 7 Number of MANAGER INTERNAL Visits 0 PT-OP-B Current Condition Start: 07/29/21 07:18 Freq: Status: Active Protocol: Document 07/28/21 09:40 OF (Rec: 07/29/21 07:41 OF [email or web address]) Current Condition History of Current Condition Onset Date 07/18/21 History of Current Condition Pt reports onset while moving sit to stand, no trauma. He has been seen at the walk in clinic. He reports transfers and prolonged walking is pain inducing. Sitting is pain free . 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 I at home PT-OP-C Subjective Start: 07/29/21 07:18 Freq: Status: Active Protocol: Document 08/31/21 14:01 (Rec: 08/31/21 16:16 [id number]) OP-PT Subjective Patient Comments Patient Comments I got a lot better and i dont need my cane anymore. I havent taken the pain pills for 2 days already. Patient Reported Progress Improving PT-OP-G Mobility & Gait Start: 07/29/21 07:18 Freq: Status: Active Protocol: Document 07/28/21 09:40 OF (Rec: 07/29/21 07:41 OF [email or web address]) OP Gait Assessment Gait Gait Assistance Required: Minimum Assistance Distance (Feet) 100 Able to Maintain Weight Bearing Status Yes During Gait Assistive Devices Assistive Device Gait Belt Gait Deviations General Gait Pattern Decreased Stride Length, Lateral Trunk Lean Comments Gait Comments Shuffling, poor pushoff. Advised pt to bring straight cane to offload R LE Stair Climbing Evaluation Comments Stair Climbing Comments stairs deferred due to difficulty with level surfaces PT-OP-H Neuro Start: 07/29/21 07:18 Freq: Status: Active Protocol: Document 07/28/21 09:40 OF (Rec: 07/29/21 07:41 OF [email or web address]) Sensation Evaluation Gross Sensation Gross Sensation WNL PT-OP-K Range of Motion Start: 07/29/21 07:18 Freq: Status: Active Protocol: Document 07/28/21 09:40 OF (Rec: 07/29/21 07:41 OF [email or web address]) Hip Goniometric Range of Motion Hip ROM Limitations Comments Pt demonstrates normal hip AROM bilat PT-OP-M Strength Start: 07/29/21 07:18 Freq: Status: Active Protocol: Document 07/28/21 09:40 OF (Rec: 07/29/21 07:41 OF [email or web address]) Hip Strength Hip Manual Muscle Testing L Flexion (L2) 4 Good Extension (S1) 3 Fair Abduction 3+ Fair+ Adduction 3+ Fair+ External Rotation 3- Fair- Internal Rotation 3- Fair- R Flexion (L2) 4 Good Extension (S1) 3+ Fair+ Abduction 3+ Fair+ Adduction 3+ Fair+ External Rotation 3- Fair- Internal Rotation 3- Fair- PT-OP-Q Treatments Start: 07/29/21 07:18 Freq: Status: Active Protocol: Document 08/31/21 14:01 (Rec: 08/31/21 16:16 [id number]) Therapeutic Exercises Supine Exercises knee to chest Supine Exercise Name unilateral Reps/Minutes 15s hold x 5 Comments for HEP, reports of nerve pulling at R low back bridges Supine Exercise Name review Side bilateral Reps/Minutes 3 sec hold x8 Comments added to HEP piriformis stretch Side bilateral Reps/Minutes [id number] Comments extensive cues for proper positioning PT-OP-T Assessment and Plan Start: 07/29/21 07:18 Freq: Status: Active Protocol: Document 08/31/21 14:01 (Rec: 08/31/21 16:16 [id number]) Physical Therapy Assessment Goals 4 Impairment high fall risk Short Term Goal (STG) 11/2 goal met pt is able to walk and transfer without any assistance/ AD pt will complete TUG (unable to without assist upon evaluation) STG Duration 2 weeks Conventional Mortgage Underwriter Goal (LTG) Pt will complete TUG <12sec to demo low fall risk within community. LTG Duration 6 weeks 3 Impairment pain with transfers and AMB Short Term Goal (STG) Pt will perform sit to stand with pain <2/10 STG Duration 2 weeks Snf Goal (LTG) Pt will perform sit to stand and AMB >250ft with pain <2/10 2 Impairment LE weakness Short Term Goal (STG) Pt will demonstrate bilat LE strength 3+/5 grossly STG Duration 2 weeks Snf Goal (LTG) Pt will improve LE strength to complete >8 sit to stands in 30sec LTG Duration 6 weeks 1 Impairment pt lacks HEP Short Term Goal (STG) 08/31 goal met pt at least complete 3 out of 5 HEP independently.' Pt will be I with HEP to maximize functional return STG Duration 2 weeks Progress Towards Goals Progress Towards Goals Progressing Toward Goals Assessment Summary Assessment pt reports significant improvements for the past 2 weeks. He started walking without SPC and didnt take pain meds for the past 2 days. I recommended him to start focusing hip strengthening such as bridging. Also reviewed with him for log roll method today. Might consider DC next visit. Physical Therapy Plan Frequency and Duration Frequency of Treatment 1-2x/week Duration of Treatment 4 weeks Plan of Care Start Date 07/29/21 Plan of Care End Date 09/30/21 Therapeutic Interventions Therapeutic Interventions Balance Training,Gait Training ,Home Exercise Program,Manual Therapy,Neuromuscular Re- education,Therapeutic Activities,Therapeutic Exercises Next Visit Focus/Plan Next Note Type Treatment Note Next Visit Plan progress glute/hip strengthening
--- NOTE | 2021-08-31 16:17 | PT.OPPOC ---
Physical, Occupational & Speech Therapy At [facility] Current Diagnoses Sciatica, right side (08/31/21) Visit Care Team Role Provider Type Corinne Galarza PA-C Family Provider Non-Staff Primary Care Provider Specialty: Internal Medicine Address: [address] [place] [address], [id number] Email: [email or web address] Lily Dent PA-C Attending Provider Advanced Cdl Instructor Referring Provider Specialty: EM Address: [address], [address], [place], [address] Email: [email or web address] Plan Of Care PT-OP-T Assessment and Plan Start: 07/29/21 07:18 Freq: Status: Active Protocol: Document 08/31/21 14:01 (Rec: 08/31/21 16:16 [id number]) Physical Therapy Assessment Goals 4 Impairment high fall risk Short Term Goal (STG) 08/31 goal met pt is able to walk and transfer without any assistance/ AD pt will complete TUG (unable to without assist upon evaluation) STG Duration 2 weeks Enroller Goal (LTG) Pt will complete TUG <12sec to demo low fall risk within community. LTG Duration 6 weeks 3 Impairment pain with transfers and AMB Short Term Goal (STG) Pt will perform sit to stand with pain <2/10 STG Duration 2 weeks Enroller Goal (LTG) Pt will perform sit to stand and AMB >250ft with pain <2/10 2 Impairment LE weakness Short Term Goal (STG) Pt will demonstrate bilat LE strength 3+/5 grossly STG Duration 2 weeks Enroller Goal (LTG) Pt will improve LE strength to complete >8 sit to stands in 30sec LTG Duration 6 weeks 1 Impairment pt lacks HEP Short Term Goal (STG) 11/2 goal met pt at least complete 3 out of 5 HEP independently.' Pt will be I with HEP to maximize functional return STG Duration 2 weeks Progress Towards Goals Progress Towards Goals Progressing Toward Goals Assessment Summary Assessment pt reports significant improvements for the past 2 weeks. He started walking without SPC and didnt take pain meds for the past 2 days. I recommended him to start focusing hip strengthening such as bridging. Also reviewed with him for log roll method today. Might consider DC next visit. Physical Therapy Plan Frequency and Duration Frequency of Treatment 1-2x/week Duration of Treatment 4 weeks Plan of Care Start Date 07/29/21 Plan of Care End Date 09/30/21 Therapeutic Interventions Therapeutic Interventions Balance Training,Gait Training ,Home Exercise Program,Manual Therapy,Neuromuscular Re- education,Therapeutic Activities,Therapeutic Exercises Next Visit Focus/Plan Next Note Type Treatment Note Next Visit Plan progress glute/hip strengthening Plan of Care Dates Plan of Care Start Date 07/29/21 Plan of Care End Date 09/30/21 Electronically Signed by: Catrina Pantoja, PT 08/31/21 [id number] Please Sign and Return: I have reviewed this Plan of Care and certify that the skilled therapy services above are required to meet the patient?s needs. Physician Signature Date Printed Name and Credentials Clinical Instructor Signature Printed Name and Credentials
--- NOTE | 2021-09-14 16:30 | PT.OTN ---
Current Diagnoses Sciatica, right side (09/14/21) Physical Therapy Treatment Note PT-OP-A Visit Information Start: 07/29/21 07:18 Freq: Status: Active Protocol: Document 09/14/21 13:48 HH (Rec: 09/14/21 16:28 [id number]) Out-Patient Physical Therapy Visit Information Visit Information Visit Type Aquatic Treatment Note Visit Start Time 14:32 Visit Stop Time 15:15 Total Visit Minutes 43 Visit Number 8 Number of CERTIFICATION AND SELECTION SPECIALIST Visits 0 PT-OP-B Current Condition Start: 07/29/21 07:18 Freq: Status: Active Protocol: Document 07/28/21 09:40 OF (Rec: 07/29/21 07:41 OF [email or web address]) Current Condition History of Current Condition Onset Date 07/18/21 History of Current Condition Pt reports onset while moving sit to stand, no trauma. He has been seen at the walk in clinic. He reports transfers and prolonged walking is pain inducing. Sitting is pain free . 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 I at home PT-OP-C Subjective Start: 07/29/21 07:18 Freq: Status: Active Protocol: Document 09/14/21 13:48 HH (Rec: 09/14/21 16:28 [id number]) OP-PT Subjective Patient Comments Patient Comments I started to use the cane and take tylenol again. The pain is worse with standing on it and moving my R leg. Patient Reported Progress Same PT-OP-G Mobility & Gait Start: 07/29/21 07:18 Freq: Status: Active Protocol: Document 07/28/21 09:40 OF (Rec: 07/29/21 07:41 OF [email or web address]) OP Gait Assessment Gait Gait Assistance Required: Minimum Assistance Distance (Feet) 100 Able to Maintain Weight Bearing Status Yes During Gait Assistive Devices Assistive Device Gait Belt Gait Deviations General Gait Pattern Decreased Stride Length, Lateral Trunk Lean Comments Gait Comments Shuffling, poor pushoff. Advised pt to bring straight cane to offload R LE Stair Climbing Evaluation Comments Stair Climbing Comments stairs deferred due to difficulty with level surfaces PT-OP-H Neuro Start: 07/29/21 07:18 Freq: Status: Active Protocol: Document 07/28/21 09:40 OF (Rec: 07/29/21 07:41 OF [email or web address]) Sensation Evaluation Gross Sensation Gross Sensation WNL PT-OP-K Range of Motion Start: 07/29/21 07:18 Freq: Status: Active Protocol: Document 07/28/21 09:40 OF (Rec: 07/29/21 07:41 OF [email or web address]) Hip Goniometric Range of Motion Hip ROM Limitations Comments Pt demonstrates normal hip AROM bilat PT-OP-M Strength Start: 07/29/21 07:18 Freq: Status: Active Protocol: Document 07/28/21 09:40 OF (Rec: 07/29/21 07:41 OF [email or web address]) Hip Strength Hip Manual Muscle Testing L Flexion (L2) 4 Good Extension (S1) 3 Fair Abduction 3+ Fair+ Adduction 3+ Fair+ External Rotation 3- Fair- Internal Rotation 3- Fair- R Flexion (L2) 4 Good Extension (S1) 3+ Fair+ Abduction 3+ Fair+ Adduction 3+ Fair+ External Rotation 3- Fair- Internal Rotation 3- Fair- PT-OP-Q Treatments Start: 07/29/21 07:18 Freq: Status: Active Protocol: Document 09/14/21 13:48 HH (Rec: 09/14/21 16:28 HH [id number]) Therapeutic Exercises Supine Exercises knee to chest Supine Exercise Name unilateral Reps/Minutes 15s hold x 5 Comments for HEP, reports of nerve pulling at R low back piriformis stretch Side bilateral Reps/Minutes [id number] Comments extensive cues for proper positioning Manual Therapy Treatment Soft Tissue Mobilization R QL Mobilization Type Myofascial Release,Sustained Pressure,Trigger Point Release Intensity/Depth Moderate Body Position Sidelying Comments very painful to pressure Manual Traction R hip Body Position Supine Reps/Duration 10 sec hold x10 Comments slight neural tension noted at R low back and hip. PT-OP-T Assessment and Plan Start: 07/29/21 07:18 Freq: Status: Active Protocol: Document 09/14/21 13:48 HH (Rec: 09/14/21 16:28 HH [id number]) Physical Therapy Assessment Goals 4 Impairment high fall risk Short Term Goal (STG) 08/31 goal met pt is able to walk and transfer without any assistance/ AD pt will complete TUG (unable to without assist upon evaluation) STG Duration 2 weeks Correction Goal (LTG) Pt will complete TUG <12sec to demo low fall risk within community. LTG Duration 6 weeks 3 Impairment pain with transfers and AMB Short Term Goal (STG) Pt will perform sit to stand with pain <2/10 STG Duration 2 weeks Correction Goal (LTG) Pt will perform sit to stand and AMB >250ft with pain <2/10 2 Impairment LE weakness Short Term Goal (STG) Pt will demonstrate bilat LE strength 3+/5 grossly STG Duration 2 weeks Property Economist Goal (LTG) Pt will improve LE strength to complete >8 sit to stands in 30sec LTG Duration 6 weeks 1 Impairment pt lacks HEP Short Term Goal (STG) 08/31 goal met pt at least complete 3 out of 5 HEP independently.' Pt will be I with HEP to maximize functional return STG Duration 2 weeks Assessment Summary Assessment pt has a flare up with increased pain in R hip especially for WB activities. His hip ROM is WFL but R QL is very painful to pressure. Pt does report he is very sedentary at home and I recommended him to at least 5mins x 2 on his treadmill if possible. Will f/u with him next week. Physical Therapy Plan Frequency and Duration Frequency of Treatment 1-2x/week Duration of Treatment 4 weeks Plan of Care Start Date 07/29/21 Plan of Care End Date 09/30/21 Therapeutic Interventions Therapeutic Interventions Balance Training,Gait Training ,Home Exercise Program,Manual Therapy,Neuromuscular Re- education,Therapeutic Activities,Therapeutic Exercises Next Visit Focus/Plan Next Note Type Treatment Note Next Visit Plan progress glute/hip strengthening
--- NOTE | 2021-10-04 16:27 | PT.OTN ---
Current Diagnoses Sciatica, right side (10/04/21) Physical Therapy Treatment Note PT-OP-A Visit Information Start: 07/29/21 07:18 Freq: Status: Active Protocol: Document 10/04/21 16:22 (Rec: 10/04/21 16:27 [email or web address]) Out-Patient Physical Therapy Visit Information Visit Information Visit Type Discharge Summary Visit Start Time 14:30 Visit Stop Time 15:15 Total Visit Minutes 45 Visit Number 9 Number of SKI MAKER Visits 0 PT-OP-B Current Condition Start: 07/29/21 07:18 Freq: Status: Active Protocol: Document 07/28/21 09:40 OF (Rec: 07/29/21 07:41 OF [email or web address]) Current Condition History of Current Condition Onset Date 07/18/21 History of Current Condition Pt reports onset while moving sit to stand, no trauma. He has been seen at the walk in clinic. He reports transfers and prolonged walking is pain inducing. Sitting is pain free . 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 I at home PT-OP-C Subjective Start: 07/29/21 07:18 Freq: Status: Active Protocol: Document 10/04/21 16:22 HH (Rec: 10/04/21 16:27 [email or web address]) OP-PT Subjective Patient Comments Patient Comments Im pretty much the same. I dont need the cane sometimes. I dont have much of the sharp pain but more so like a dull/ ache Patient Reported Progress Same PT-OP-G Mobility & Gait Start: 07/29/21 07:18 Freq: Status: Active Protocol: Document 07/28/21 09:40 OF (Rec: 07/29/21 07:41 OF [email or web address]) OP Gait Assessment Gait Gait Assistance Required: Minimum Assistance Distance (Feet) 100 Able to Maintain Weight Bearing Status Yes During Gait Assistive Devices Assistive Device Gait Belt Gait Deviations General Gait Pattern Decreased Stride Length, Lateral Trunk Lean Comments Gait Comments Shuffling, poor pushoff. Advised pt to bring straight cane to offload R LE Stair Climbing Evaluation Comments Stair Climbing Comments stairs deferred due to difficulty with level surfaces PT-OP-H Neuro Start: 07/29/21 07:18 Freq: Status: Active Protocol: Document 07/28/21 09:40 OF (Rec: 07/29/21 07:41 OF [email or web address]) Sensation Evaluation Gross Sensation Gross Sensation WNL PT-OP-K Range of Motion Start: 07/29/21 07:18 Freq: Status: Active Protocol: Document 07/28/21 09:40 OF (Rec: 07/29/21 07:41 OF [email or web address]) Hip Goniometric Range of Motion Hip ROM Limitations Comments Pt demonstrates normal hip AROM bilat PT-OP-M Strength Start: 07/29/21 07:18 Freq: Status: Active Protocol: Document 07/28/21 09:40 OF (Rec: 07/29/21 07:41 OF [email or web address]) Hip Strength Hip Manual Muscle Testing L Flexion (L2) 4 Good Extension (S1) 3 Fair Abduction 3+ Fair+ Adduction 3+ Fair+ External Rotation 3- Fair- Internal Rotation 3- Fair- R Flexion (L2) 4 Good Extension (S1) 3+ Fair+ Abduction 3+ Fair+ Adduction 3+ Fair+ External Rotation 3- Fair- Internal Rotation 3- Fair- PT-OP-Q Treatments Start: 07/29/21 07:18 Freq: Status: Active Protocol: Document 10/04/21 16:22 HH (Rec: 10/04/21 16:27 HH [email or web address]) Therapeutic Exercises Supine Exercises sciatic nerve glide Supine Exercise Name with knee extension Comments for HEP LTR Side bilateral Reps/Minutes 5 x1 Comments for HEP knee to chest Supine Exercise Name unilateral Reps/Minutes 15s hold x 5 Comments for HEP, reports of nerve pulling at R low back pelvic tilt Side bilateral Reps/Minutes 3x5 Comments cues for core recruitment, holding, breathing piriformis stretch Side bilateral Reps/Minutes [id number] Comments extensive cues for proper positioning Manual Therapy Treatment Soft Tissue Mobilization R QL Mobilization Type Myofascial Release,Sustained Pressure,Trigger Point Release Intensity/Depth Moderate Body Position Sidelying Comments no discomfort noted R glute Mobilization Type Myofascial Release,Sustained Pressure,Trigger Point Release Intensity/Depth Moderate Body Position Sidelying Comments no discomfort noted PT-OP-T Assessment and Plan Start: 07/29/21 07:18 Freq: Status: Active Protocol: Document 10/04/21 16:22 (Rec: 10/04/21 16:27 [email or web address]) Physical Therapy Assessment Goals 4 Impairment high fall risk Short Term Goal (STG) 11/2 goal met pt is able to walk and transfer without any assistance/ AD pt will complete TUG (unable to without assist upon evaluation) STG Duration 2 weeks Policy Writer Sales Goal (LTG) Pt will complete TUG <12sec to demo low fall risk within community. LTG Duration 6 weeks 3 Impairment pain with transfers and AMB Short Term Goal (STG) Pt will perform sit to stand with pain <2/10 STG Duration 2 weeks Mcc Goal (LTG) Pt will perform sit to stand and AMB >250ft with pain <2/10 2 Impairment LE weakness Short Term Goal (STG) Pt will demonstrate bilat LE strength 3+/5 grossly STG Duration 2 weeks Mcc Goal (LTG) Pt will improve LE strength to complete >8 sit to stands in 30sec LTG Duration 6 weeks 1 Impairment pt lacks HEP Short Term Goal (STG) 112 goal met pt at least complete 3 out of 5 HEP independently.' Pt will be I with HEP to maximize functional return STG Duration 2 weeks Assessment Summary Assessment pt reports his symptoms / progress has been plateaued. He has to use SPC to walk, and difficulty to perform SLR d/t discomfort. He requested to be DC from PT and wanted to see if he can self manage his pain effectively at home. Physical Therapy Plan Frequency and Duration Frequency of Treatment 1-2x/week Duration of Treatment 4 weeks Plan of Care Start Date 07/29/21 Plan of Care End Date 09/30/21 Therapeutic Interventions Therapeutic Interventions Balance Training,Gait Training ,Home Exercise Program,Manual Therapy,Neuromuscular Re- education,Therapeutic Activities,Therapeutic Exercises Next Visit Focus/Plan Next Note Type Treatment Note Next Visit Plan progress glute/hip strengthening
== END 2021-11-30 09:31 ==
LOC: PHYS 14:30
PROVIDERS: Family Provider Student in an Organized Health Care Education/Training Program; PCP Student in an Organized Health Care Education/Training Program; Referring Provider Physician Assistant; Visit Provider Physician Assistant
DX: M54.31 Sciatica, right side (principal)
CPT/HCPCS: 97110; 97116; 97140; 97161; 97530

== ENCOUNTER → 2021-10-18 11:57 | Outpatient (CLI) | payer OTHER, SELFPAY ==
--- NOTE | 2021-10-18 | DI.RAD.S_ITS ---
PROCEDURE: XR HIP W PEL IF DONE RT 2V INDICATIONS: RT HIP PAIN TECHNIQUE: AP pelvis with lateral view(s) of the right hip(s). COMPARISON: [facility], CR, XR LUMBAR SPINE 2-3V, 10/18/2021, 11:56. FINDINGS: Bones: No fractures or dislocations. Pelvic ring appears intact. No suspicious bony lesions. Moderate axial joint space narrowing with periarticular osteophyte formation bilaterally. Degenerative disc and facet disease involves the inferior lumbar spine. Soft tissues: The visualized bowel gas pattern is normal. No suspicious soft tissue calcifications. IMPRESSION: Moderate symmetric hip joint degeneration. Dictated by: Steven Kaplan RRA Interpreted: Sreekanth Erazo MD on 10/18/2021 at 13:26 Transcribed by: LUIZA on 10/18/2021 at 13:27 Approved by: Sreekanth Erazo M.D. on 10/18/2021 at 13:30
--- NOTE | 2021-10-18 | DI.RAD.S_ITS ---
PROCEDURE: XR LUMBAR SPINE 2-3V INDICATIONS: LOW BACK PAIN TECHNIQUE: 3 views of the lumbar spine were acquired. COMPARISON: [facility], , ABDOMEN LIMITED, 04/16/2021, 10:04. FINDINGS: Bones: 5 [id number] vertebrae are present. Mild levoscoliosis centered at the L3 level. Trace multilevel retrolisthesis. Multilevel disc degeneration, most notably and severe at the L1-L2 and to lesser degree L2-L3, L3-L4 and L4-L5 levels. Moderate facet joint arthropathy at the L4-L5 and L5-S1 level.. No vertebral body compression fractures. No suspicious bony lesions. Soft tissues: Overlying bowel gas pattern is normal. No suspicious soft tissue calcifications. Vascular calcifications indicate atherosclerosis. IMPRESSION: Multilevel spondylosis. Dictated by: Steven Kaplan [facility] Interpreted: Sreekanth Erazo MD on 10/18/2021 at 13:27 Approved by: Sreekanth Erazo M.D. on 10/18/2021 at 15:40
== END ==
PROVIDERS: Family Provider Student in an Organized Health Care Education/Training Program; PCP Student in an Organized Health Care Education/Training Program; Referring Provider Student in an Organized Health Care Education/Training Program; Visit Provider Student in an Organized Health Care Education/Training Program
DX: M16.11 Unilateral primary osteoarthritis, right hip (principal); M51.36 Other intervertebral disc degeneration, lumbar region; M47.816 Spondylosis without myelopathy or radiculopathy, lumbar region; M47.817 Spondylosis without myelopathy or radiculopathy, lumbosacral region; M25.551 Pain in right hip; M54.50 Low back pain, unspecified
CPT/HCPCS: 72100; 73502

== ENCOUNTER → 2021-11-11 08:52 | Outpatient (CLI) | payer OTHER, SELFPAY ==
--- NOTE | 2021-11-11 08:53 | DI.ECHO.S_ITS ---
[place] [facility]---------+ [facility] +---------+ : : [address] : : : : [id number] : : : : Phone: [phone]+ Echocardiogram Report + + :Name: DANIELA TRAN Study Date: 11/11/2021 Height: 73.5 in: :[facility] ReadingLocation: Weight: 168 lb : : Gender: Male BSA: 2.0 m2 : :: 1935 Age: 86 yrs BP: 125/77 mmHg: :Reason For Study: Dyspnea : :Ordering Physician: : :DANIELA Performed By: Franklyn Craft : :Referring: AKUA JONES : + + Interpretation Summary The left ventricle is normal in size and wall thickness. Left ventricular systolic function is low normal. Left ventricular ejection fraction is estimated to be 55 +/- 5%. There is a mild dyssynchronous contraction pattern, consistent with a conduction abnormality. Diastolic parameters suggest a relaxation abnormality of the left ventricle, consistent with probable normal filling pressures. The right ventricle is normal in size and function. The right ventricular systolic pressure is estimated to be at least 23 mmHg based on an estimated right atrial pressure of 8 mm Hg. The left atrial size is normal. There is no Doppler evidence for an interatrial shunt. The atrial septum is aneurysmal. There is no significant valvular heart disease. The aortic root is normal size. Ascending aorta mildly dilated at 4.2 cm There is a trivial pericardial effusion noted. Procedure: A two-dimensional transthoracic echocardiogram with color flow and Doppler was performed. The study quality was technically adequate. There is no prior echocardiogram noted for this patient. Aquisition of apical window slightly difficult due to patient body habitus. The patient was in normal sinus rhythm during the exam. The patient had occasional PVCs during the exam. Left Ventricle: The left ventricle is normal in size and wall thickness. There is borderline proximal septal thickening noted. Left ventricular systolic function is low normal. Left ventricular ejection fraction is estimated to be 55 +/- 5%. There is a mild dyssynchronous contraction pattern, consistent with a conduction abnormality. Diastolic parameters suggest a relaxation abnormality of the left ventricle, consistent with probable normal filling pressures. Right Ventricle: The right ventricle is normal in size and function. Atria: The left atrial size is normal. The right atrium is moderately dilated. A prominent eustachian valve is noted. There is no Doppler evidence for an interatrial shunt. The atrial septum is aneurysmal. Mitral Valve: The mitral valve leaflets appear moderately thickened, but open well. There is trace mitral regurgitation. Aortic Valve: The aortic valve is trileaflet. The aortic valve opens well. The aortic valve is slightly calcified. There is trace aortic regurgitation. Tricuspid Valve: The tricuspid valve is normal. There is trace tricuspid regurgitation. The right ventricular systolic pressure is estimated to be at least 23 mmHg based on an estimated right atrial pressure of 8 mm Hg. Pulmonic Valve: The pulmonic valve is normal in structure and function. There is no significant valvular heart disease. Great Vessels: The aortic root is normal size. Ascending aorta mildly dilated at 4.2 cm. The aortic arch is normal in size. The IVC is dilated (diameter is greater than 2.1 cm) yet it collapses greater than 50% with a sniff. This suggests a right atrial pressure of 8 mm Hg. Pericardium/ Pleura There is a trivial pericardial effusion noted. There is no pleural effusion. MMode/2D Measurements & Calculations LVIDd: 3.9 cm LVOT diam: 2.3 cm LVIDs: 2.4 cm Ao root diam: 3.5 cm FS: 38.5 % asc Aorta Diam: 4.2 cm IVSd: 1.3 cm Ao Arch Diam (Prox Trans): 2.6 cm LVPWd: 0.90 cm LV ahumada. diameter/BSA (cm/m^2): 1.9 LV sys. diameter/BSA (cm/m^2): 1.2 LA A2 area: 14.6 cm2 RA long axis: 6.8 cm LA A4 area: 24.7 cm2 IVC diam: 2.6 cm LA length (vol): 5.5 cm LA vol: 55.4 ml LA vol index: 27.5 ml/m2 LVLs ap4: 6.1 cm LVLd ap2: 7.0 cm LVLs ap2: 6.0 cm TAPSE_phl: 2.6 cm Doppler Measurements & Calculations Ao V2 max: 105.0 cm/sec LVOT Max Ga: 93.3 cm/sec Ao V2 mean: 77.0 cm/sec LV V1 max P.5 mmHg Ao max P.0 mmHg LV V1 VTI: 24.4 cm Ao mean P.0 mmHg RAHAT(I,D): 4.0 cm2 Ao V2 VTI: 25.6 cm RAHAT(V,D): 3.7 cm2 sev ratio: 0.95 RAHAT indexed to BSA (cm^2/m^2): 2.0 MV E max ga: 58.5 cm/sec TR max ga: 195.5 cm/sec MV A max ga: 108.0 cm/sec TR max P.3 mmHg MV E/A: 0.54 PA V2 max: 63.3 cm/sec Med Peak E' Ga: 6.3 cm/sec PA V2 mean: 44.1 cm/sec E/E' med: 9.3 PA mean P.0 mmHg Lat Peak E' Ga: 6.5 cm/sec PA pr(Accel): 18.7 mmHg E/E' lat: 9.0 E/e' average: 9.2 MV dec time: 0.31 sec SV(LVOT): 101.4 ml AV VR_phl: 0.89 RAHAT(VTI)/BSA_phl: 2.0 MV P1/2t-pr_phl: 91.0 msec Reading Physician:02:34 PM
== END ==
PROVIDERS: Family Provider Student in an Organized Health Care Education/Training Program; PCP Student in an Organized Health Care Education/Training Program; Referring Provider Student in an Organized Health Care Education/Training Program; Visit Provider Student in an Organized Health Care Education/Training Program
DX: R06.00 Dyspnea, unspecified (principal); I31.3 Pericardial effusion (noninflammatory); I34.0 Nonrheumatic mitral (valve) insufficiency; I35.1 Nonrheumatic aortic (valve) insufficiency; I07.1 Rheumatic tricuspid insufficiency
CPT/HCPCS: 93306

== ENCOUNTER → 2022-04-27 09:09 | Outpatient (CLI) | payer OTHER, SELFPAY ==
--- NOTE | 2022-04-27 09:11 | DI.RAD.S_ITS ---
PROCEDURE: XR CHEST 2V INDICATIONS: DYSPNEA TECHNIQUE: 2 views of the chest were acquired. COMPARISON: None. FINDINGS: Surgical changes and devices: None. Lungs and pleura: Mild elevation of the right hemidiaphragm. Streaky right basilar opacities are present. No lobar consolidation. No pleural effusion or pneumothorax. Mediastinum: Cardiac silhouette is within normal limits for size. A hiatal hernia is present. Bones and chest wall: No suspicious bony abnormalities. Soft tissues appear unremarkable. IMPRESSION: 1. Mild elevation of the right hemidiaphragm is present. Minimal right basilar opacities are present probably representing atelectasis, aspiration or pneumonia difficult to exclude. 2. A hiatal hernia is present. Dictated by: Frank Gonzalez M.D. on 04/27/2022 at 13:13 Approved by: Frank Gonzalez M.D. on 04/27/2022 at 13:18
--- NOTE | 2022-05-09 10:16 | ONC.MSW ---
Description: New Referral Navigation T/C Reason for Referral: CLL (new diagnosis) Activity: Reviewed referral for medical status, acuity, and immediate needs. This referral was delayed due to the referring provider having not initially provided us with a prior-authorization, and being [facility], it took several phone calls from this GROUP INSURANCE SPECIAL AGENT to confirm. We also requested that they update the referring dx, as the new pathology report indicated his progression to CLL. Called pt to confirm that this has all been settled, and discussed scheduling and immediate needs. Confirmed his initial consult time for 05/10 at 11:00am.
== END ==
PROVIDERS: Family Provider Student in an Organized Health Care Education/Training Program; PCP Student in an Organized Health Care Education/Training Program; Referring Provider Student in an Organized Health Care Education/Training Program; Visit Provider Student in an Organized Health Care Education/Training Program
DX: R06.00 Dyspnea, unspecified (principal); K44.9 Diaphragmatic hernia without obstruction or gangrene
CPT/HCPCS: 71046

== ENCOUNTER → 2022-12-22 09:11 | Outpatient (CLI) | payer OTHER, SELFPAY ==
[2022-12-22 11:04] LABS: Hematocrit 34.8 % (41-53); Hemoglobin 11.3 g/dL (13.5-17.5); Mean Corpuscular HGB Conc 32.6 % (30-36); Mean Corpuscular Hemoglobin 26.1 PG (26-34); Mean Corpuscular Volume 79.9 fL (80-100); Platelet Count 240 X10^3/uL (150-400); Red Blood Cell Count 4.35 X10^6/uL (4.5-5.9); Red Cell Distribution Width 18.3 % (11.6-14.8); White Blood Cell Count 6.3 X10^3/uL (4.5-11.0)
[2022-12-22 11:21] LABS: Alanine Aminotransferase 15 IU/L (<50); Albumin 3.8 g/dL (3.5-5.0); Albumin Globulin Ratio 1.9 (1.0-2.8); Alkaline Phosphatase 64 U/L (38-126); Aspartate Aminotransferase 24 IU/L (17-59); BUN Creatinine Ratio 19.7 (6-22); Bilirubin Total 0.6 mg/dL (0.2-1.3); Blood Urea Nitrogen 23 mg/dL (9-20); Calcium 9.4 mg/dL (8.4-10.2); Carbon Dioxide 30 mmol/L (22-32); Chloride 100 mmol/L (98-107); Estimated Glomerular Filt Rate 60 mL/min (>60); Glucose 84 mg/dL (80-110); HEMOLYSIS < 15 (0-50); Lipase 172 U/L (23-300); Potassium 4.8 mmol/L (3.4-5.1); Sodium 135 mmol/L (137-145); Total Protein 5.8 g/dL (6.3-8.2)
== END ==
PROVIDERS: Family Provider Student in an Organized Health Care Education/Training Program; PCP Student in an Organized Health Care Education/Training Program; Referring Provider Student in an Organized Health Care Education/Training Program; Visit Provider Student in an Organized Health Care Education/Training Program
DX: R10.11 Right upper quadrant pain (principal)
CPT/HCPCS: 36415; 80053; 83690; 85027

== ENCOUNTER → 2023-11-28 10:09 | Outpatient (CLI) | payer OTHER, SELFPAY ==
[2023-11-28 11:49] LABS: Alanine Aminotransferase 12 IU/L (<50); Albumin Globulin Ratio 1.7 (1.0-2.8); Alkaline Phosphatase 60 U/L (38-126); Aspartate Aminotransferase 22 IU/L (17-59); BUN Creatinine Ratio 17.8 (6-22); Bilirubin Total 0.7 mg/dL (0.2-1.3); Blood Urea Nitrogen 21 mg/dL (9-20); Calcium 9.6 mg/dL (8.4-10.2); Carbon Dioxide 30 mmol/L (22-32); Chloride 102 mmol/L (98-107); Cholesterol 146 mg/dL (140-199); Estimated Glomerular Filt Rate 59 mL/min (>60); Globulin 2.3 g/dL (1.7-4.1); Glucose 104 mg/dL (80-110); HDL Cholesterol 48 mg/dL (40-60); HEMOLYSIS < 15 (0-50); LDL Cholesterol Calculated 81 mg/dL (<100); Potassium 4.8 mmol/L (3.4-5.1); Sodium 138 mmol/L (137-145); Total Protein 6.3 g/dL (6.3-8.2); Triglycerides 85 mg/dL (35-150)
[2023-11-28 12:01] LABS: Vitamin D 25 Hydroxy (D3) 28.2 ng/mL (30.0-100.0)
[2023-11-28 12:15] LABS: Thyroid Stimulating Hormone 2.69 uIU/mL (0.47-4.68)
[2023-11-28 12:37] LABS: Vitamin B12 539 pg/mL (239-931)
== END ==
PROVIDERS: Family Provider Student in an Organized Health Care Education/Training Program; PCP Student in an Organized Health Care Education/Training Program; Referring Provider Student in an Organized Health Care Education/Training Program; Visit Provider Student in an Organized Health Care Education/Training Program
DX: E78.5 Hyperlipidemia, unspecified (principal); R53.83 Other fatigue
CPT/HCPCS: 36415; 80053; 80061; 82306; 82607; 84443

== ENCOUNTER → 2024-02-20 08:57 | Outpatient (CLI) | payer OTHER, SELFPAY ==
--- NOTE | 2024-02-20 08:58 | DI.ECHO.S_ITS ---
[place] +---------+ [facility] : : [id number] : : [place] [address] : : [id number] : : Phone: [phone] Echocardiogram Report + + :Name: DANIELA TRAN Study Date: 02/20/2024 Height: 74 in : :[facility] ReadingLocation: Weight: 180 lb : : Gender: Male BSA: 2.1 m2 : :: 1935 Age: 88 yrs BP: 108/73 mmHg: :Reason For Study: DYSPNEA : :Ordering Physician: ROBERT, : :AKUA Performed By: Maya Martin : :Referring: AKUA JONES : + + Interpretation Summary 1) Normal left ventricular size and thickness with mildly to moderately reduced systolic function (EF 40-45%). 2) Normal right ventricular size with low normal function. 3) No significant valvular abnormalities. 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 5) Atrial fibrillation with ventricular rates in the 100-125bpm range present during the study. 6) Compared to the Echo done 11/11/2021, LVEF has decreased from 55% to 40-45% on this study. Procedure: A two-dimensional transthoracic echocardiogram with color flow and Doppler was performed. The study quality was technically adequate. Comparison is made with the echocardiogram of 11/11/2021. The patient was in atrial fibrillation with heart rates between 100-125 bpm during the exam. Left Ventricle: The left ventricle is normal in size and wall thickness. The ejection fraction is estimated to be 40-45%. There is mild to moderate global hypokinesis of the left ventricle. Diastolic function could not be accurately assessed due to atrial fibrillation. Right Ventricle: The right ventricle is normal size. Right ventricular systolic function is at the lower limits of normal. Atria: The left atrium is moderately dilated. Right atrial size is normal. There is no Doppler evidence for an interatrial shunt. Mitral Valve: The mitral valve leaflets appear mildly thickened, but open well. The mitral valve leaflets are mildly calcified. There is trace mitral regurgitation. Aortic Valve: The aortic valve is trileaflet. The aortic valve is mildly calcified. There is no aortic valve stenosis. There is trace aortic regurgitation. Tricuspid Valve: The tricuspid valve is normal in structure and function. There is mild tricuspid regurgitation. The right ventricular systolic pressure is estimated to be at least 30 mmHg based on an estimated right atrial pressure of 3 mm Hg. Pulmonic Valve: The pulmonic valve is not well visualized. Great Vessels: The aortic root is normal size. The ascending aorta is moderately enlarged. The IVC is of normal diameter and collapses greater than 50% with a sniff. This suggests a low right atrial pressure of 3 mm Hg. Pericardium/ Pleura There is no pericardial effusion. There is no pleural effusion. MMode/2D Measurements & Calculations LVIDd: 4.7 cm LVOT diam: 2.2 cm LVIDs: 3.3 cm Ao root diam: 3.9 cm FS: 30.8 % asc Aorta Diam: 4.5 cm IVSd: 0.75 cm Ao Arch Diam (Prox Trans): 2.7 cm LVPWd: 0.84 cm LV ahumada. diameter/BSA (cm/m^2): 2.3 LV sys. diameter/BSA (cm/m^2): 1.6 LA A2 area: 25.8 cm2 RA long axis: 6.8 cm LA A4 area: 28.0 cm2 RA area: 22.9 cm2 LA length (vol): 6.7 cm RA vol: 65.4 ml LA vol: 92.2 ml RA : 31.5 ml/m2 LA vol index: 44.4 ml/m2 IVC diam: 2.0 cm RVD1 (basal): 3.4 cm RVD2 (mid): 3.1 cm TAPSE: 1.8 cm Doppler Measurements & Calculations Ao V2 max: 119.7 cm/sec LVOT Max Ga: 78.5 cm/sec Ao V2 mean: 88.8 cm/sec LV V1 max P.5 mmHg Ao max P.7 mmHg LV V1 VTI: 13.4 cm Ao mean P.5 mmHg RAHAT(I,D): 2.2 cm2 Ao V2 VTI: 23.1 cm RAHAT(V,D): 2.5 cm2 sev ratio: 0.58 RAHAT indexed to BSA (cm^2/m^2): 1.1 MV E max ga: 100.3 cm/sec TR max ga: 257.4 cm/sec MV A max ga: 1.1 cm/sec TR max P.7 mmHg MV E/A: 88.1 PA V2 max: 71.1 cm/sec Med Peak E' Ga: 9.1 cm/sec PA V2 mean: 53.5 cm/sec E/E' med: 11.1 PA mean P.2 mmHg Lat Peak E' Ga: 10.3 cm/sec E/E' lat: 9.8 E/e' average: 10.4 MV dec time: 0.15 sec SV(LVOT): 51.8 ml Reading Physician:02:48 PM
== END ==
LOC: ECHO 08:57
PROVIDERS: PCP Student in an Organized Health Care Education/Training Program; Referring Provider Student in an Organized Health Care Education/Training Program; Visit Provider Student in an Organized Health Care Education/Training Program
DX: I07.1 Rheumatic tricuspid insufficiency (principal); I77.89 Other specified disorders of arteries and arterioles; R06.09 Other forms of dyspnea
CPT/HCPCS: 93306

== ENCOUNTER → 2024-03-06 10:31 | Outpatient (CLI) | payer OTHER, SELFPAY ==
[2024-02-26 18:50] VITALS: BMI 24.5
--- NOTE | 2024-03-06 10:33 | DI.RAD.S_ITS ---
PROCEDURE: XR CHEST 2V INDICATIONS: follow up pneumonia TECHNIQUE: 2 views of the chest were acquired. COMPARISON: [facility], CT, CT CHEST W CON, 02/26/2024, 14:55. [facility], CR, XR CHEST 1V, 02/26/2024, 14:12. FINDINGS: Surgical changes and devices: None. Lungs and pleura: Subtle bibasilar opacities are seen consistent with CT finding of small infiltrate versus atelectasis. Vague opacity again noted projecting over right heart border which was seen on CT of chest to represent loculated pleural effusion versus pericardial cyst.No pneumothorax. Mediastinum: Mediastinal contours are normal. Heart size is normal. Large hiatal hernia is again seen. Bones and chest wall: No suspicious bony abnormalities. Soft tissues appear unremarkable. IMPRESSION: Scattered bibasilar small infiltrates versus atelectasis. Suggestion of loculated pleural effusion versus pericardial cyst projecting over right heart border unchanged from prior study. Large hiatal hernia. No pneumothorax. Dictated by: Sreekanth Erazo M.D. on 03/06/2024 at 14:23 Approved by: Sreekanth Erazo M.D. on 03/06/2024 at 14:27
== END ==
LOC: RAD 10:32
PROVIDERS: PCP Student in an Organized Health Care Education/Training Program; Referring Provider Student in an Organized Health Care Education/Training Program; Visit Provider Student in an Organized Health Care Education/Training Program
DX: R91.8 Other nonspecific abnormal finding of lung field (principal)
CPT/HCPCS: 71046

== ENCOUNTER → 2024-09-12 12:39 | Outpatient (CLI) | payer OTHER, SELFPAY ==
[2024-02-26 18:50] VITALS: BMI 24.5
--- NOTE | 2024-09-12 12:40 | DI.CT.S_ITS ---
PROCEDURE: CT CHEST W CON INDICATIONS: DYSPNEA ON EXERTION / PLEURAL EFFUSION ON RIGHT TECHNIQUE: After the administration of intravenous contrast, 5 mm thick sections acquired from the pulmonary apices to the posterior costophrenic angles. 1 mm axial lung, 5 mm thick coronal and sagittal reformats and 7 mm axial MIP were acquired. For radiation dose reduction, the following was used: automated exposure control, adjustment of mA and/or kV according to patient size. COMPARISON: [facility], CT, CT CHEST W CON, 02/26/2024, 14:55. FINDINGS: Image quality: Diagnostic. Lower Neck: No enlarged lymph nodes. Thyroid: No thyroid nodules which require sonographic follow up, per consensus guidelines. Axillae: No enlarged lymph nodes. Chest Wall: Unremarkable. Bones: Unremarkable. Lungs and Pleura: No pneumothorax or pleural effusions. Scattered areas of nodularity unchanged compared to prior exam. Very minimal residual left pleural effusion. Heart: Heart size is enlarged. Mild pericardial effusion. Coronary calcifications. Thoracic Vessels: The aorta and pulmonary arteries demonstrate normal size. Mediastinum and Alee: Relatively unchanged appearance enlarged mediastinal lymph nodes with precarinal node stable 1.4 cm. Esophagus: No wall thickening. Moderate hiatal hernia. Upper Abdomen: Visualized upper abdomen solid organs and bowel loops appear normal. IMPRESSION: Relatively stable interval exam demonstrating areas opacities and nodularity likely reflective infection/inflammation. Minimal residual left effusion, improved compared to prior exam. Mildly enlarged mediastinal lymph nodes, unchanged. Dictated by: Leila Chavez M.D. on 09/12/2024 at 19:45 Approved by: Leila Chavez M.D. on 09/12/2024 at 19:48
== END ==
PROVIDERS: PCP Student in an Organized Health Care Education/Training Program; Referring Provider Nurse Practitioner Family; Visit Provider Nurse Practitioner Family
DX: I51.7 Cardiomegaly (principal); I31.39 Other pericardial effusion (noninflammatory); I25.10 Atherosclerotic heart disease of native coronary artery without angina pectoris; J90 Pleural effusion, not elsewhere classified; R06.09 Other forms of dyspnea; K44.9 Diaphragmatic hernia without obstruction or gangrene
CPT/HCPCS: 71260; Q9967

== ENCOUNTER → 2024-09-20 15:27 | Outpatient (CLI) | payer OTHER, SELFPAY ==
[2024-02-26 18:50] VITALS: BMI 24.5
[2024-09-20 16:57] LABS: Add Manual Diff / Slide Review NO; Basophils Absolute Auto 100 /uL (0-100); Basophils Percent Auto 0.7 % (0-2); Eosinophils Absolute Auto 200 /uL (0-450); Eosinophils Percent Auto 2.5 % (2-4); Hematocrit 33.5 % (41-53); Hemoglobin 10.7 g/dL (13.5-17.5); Lymphocytes Absolute Auto 2000 /uL (1100-4500); Lymphocytes Percent Auto 20.8 % (25-40); Mean Corpuscular HGB Conc 31.8 % (30-36); Mean Corpuscular Hemoglobin 26.2 PG (26-34); Mean Corpuscular Volume 82.4 fL (80-100); Monocytes Absolute Auto 700 /uL (0-900); Monocytes Percent Auto 7.4 % (3-14); Neutrophils Absolute Auto 6600 /uL (1500-7000); Neutrophils Percent Auto 68.6 % (50-75); Platelet Count 475 X10^3/uL (150-400); Red Blood Cell Count 4.07 X10^6/uL (4.5-5.9); Red Cell Distribution Width 15.1 % (11.6-14.8); White Blood Cell Count 9.6 X10^3/uL (4.5-11.0)
[2024-09-20 18:10] LABS: Erythrocyte Sedimentation Rate 45 MM/HR (0-15)
== END ==
PROVIDERS: PCP Family Medicine; Referring Provider Optometrist; Visit Provider Optometrist
DX: H47.019 Ischemic optic neuropathy, unspecified eye (principal)
CPT/HCPCS: 36415; 85025; 85651; 86140